=== PATIENT | female | born 1950 | race Caucasian/White ===

== ENCOUNTER → 2016-06-05 | Outpatient (CLI) | payer MEDICARE ==
[~2016-06-05] MED LIST: AMLO10TA2 PO; ATOR1TAB21 PO; AZEL0.055; CLON0.5T PO; DRIS50002 PO; FLON0.054; KLON0.5T PO; LEVO75TA4 PO; LEXA1TAB2 PO; PEPT525S PO; POLYOPD OU; REST0.05 OU; TUMS500C PO; VITA500019 PO
--- NOTE | 2016-06-05 11:55 | REPMRS ---
Patient History The patient states she had a clinical breast exam in 06/03 No known family history of cancer. 2 stereotatic breast biopsies. Digital Woman Screen Mammo: June 05, 2016 - Exam #: [id number] Bilateral CC and MLO view(s) were taken. Technologist: Rosario Huddleston, Technologist Prior study comparison: June 15, 2015, digital woman screen mammo performed at [facility]. May 23, 2014, digital woman screen mammo performed at [facility]. April 12, 2013, digital woman screen mammo performed at [facility]. FINDINGS: There are scattered fibroglandular densities. There is a moderate amount of residual fibroglandular tissue which is fairly symmetric. There is no interval development of dominant mass, architectural distortion, or clustered microcalcification typical of malignancy. There has been no change in the appearance of the mammogram from the prior studies. ASSESSMENT: BI-RADS/ACR category 1 mammogram. Negative. Recommendation Routine screening mammogram of both breasts in 1 year (for women over age 40). This mammogram was interpreted with the aid of an FDA-approved computer-aided dectection system. Electronically Signed By: Ronny Hicks MD 06/05/16 [id number]
== END ==
LOC: M WHC 10:40
PROVIDERS: ATTEND Nurse Practitioner Women's Health
DX: Z12.31 Encounter for screening mammogram for malignant neoplasm of breast (principal); Z12.4 Encounter for screening for malignant neoplasm of cervix
CPT/HCPCS: G0101; G0202

== ENCOUNTER 2016-07-25 18:44 | Emergency (ER) | payer MEDICARE ==
[~2016-07-25] VITALS: Ht 165.1 cm; Wt 64.4 kg
[2016-07-26 00:23] VITALS: BP 135/77
== END 2016-07-26 00:43 | disposition home or self-care (01) ==
LOC: M ED 20:22
DX: I10 Essential (primary) hypertension (principal); F03.90 Unspecified dementia, unspecified severity, without behavioral disturbance, psychotic disturbance, mood disturbance, and anxiety; Z79.899 Other long term (current) drug therapy

== ENCOUNTER → 2016-07-29 | Outpatient (REF) | payer MEDICARE ==
[2016-07-29 17:12] LABS: ALBUMIN 4.2 GM/DL (3.2-5.2); ALBUMIN/GLOBULIN RATIO 1.31 (1.00-1.93); BILIRUBIN,TOTAL 0.4 MG/DL (0.2-1.0); CALCIUM LEVEL 9.4 MG/DL (8.8-10.2); CREATININE FOR GFR 1.36 MG/DL (0.55-1.02); FREE T4 1.08 NG/DL (0.76-1.46); GLOMERULAR FILTRATION RATE 41.5 (>45); POTASSIUM SERUM 4.1 MEQ/L (3.5-5.1); TOTAL PROTEIN 7.4 GM/DL (6.4-8.2)
== END ==
LOC: M SFHCPLAZ 11:49
PROVIDERS: ATTEND Nurse Practitioner Family
DX: E03.9 Hypothyroidism, unspecified (principal)
CPT/HCPCS: 36415; 80053; 84439; 84443; G0463

== ENCOUNTER → 2016-10-21 | Outpatient (REF) | payer MEDICARE ==
[2016-10-21 19:24] LABS: ALBUMIN 3.9 GM/DL (3.2-5.2); ALBUMIN/GLOBULIN RATIO 1.15 (1.00-1.93); BILIRUBIN,TOTAL 0.4 MG/DL (0.2-1.0); CALCIUM LEVEL 9.6 MG/DL (8.8-10.2); CREATININE FOR GFR 1.32 MG/DL (0.55-1.02); FREE T4 1.08 NG/DL (0.76-1.46); TOTAL PROTEIN 7.3 GM/DL (6.4-8.2)
== END ==
LOC: M LABDRAW1 17:18
PROVIDERS: ATTEND Nurse Practitioner Family
DX: I10 Essential (primary) hypertension (principal); E03.9 Hypothyroidism, unspecified

== ENCOUNTER → 2016-10-23 | Outpatient (REF) | payer MEDICARE | LOC: M SFHCPLAZ 13:07 | PROVIDERS: ATTEND Nurse Practitioner Family | DX: R30.0 Dysuria (principal) | CPT/HCPCS: 81002; 87088; 87186; 90670; G0009; G0463 ==

== ENCOUNTER → 2017-02-09 | Outpatient (REF) | payer MEDICARE ==
[2017-02-09 13:38] LABS: ALBUMIN 4.2 GM/DL (3.2-5.2); ALBUMIN/GLOBULIN RATIO 1.35 (1.00-1.93); BILIRUBIN,TOTAL 0.4 MG/DL (0.2-1.0); CALCIUM LEVEL 9.9 MG/DL (8.8-10.2); CREATININE FOR GFR 1.27 MG/DL (0.55-1.02); FREE T4 0.95 NG/DL (0.76-1.46); GLOMERULAR FILTRATION RATE 44.8 (>45); POTASSIUM SERUM 4.8 MEQ/L (3.5-5.1); TOTAL PROTEIN 7.3 GM/DL (6.4-8.2)
== END ==
LOC: M SFHCPLAZ 09:15
PROVIDERS: ATTEND Nurse Practitioner Family
DX: I10 Essential (primary) hypertension (principal); E03.9 Hypothyroidism, unspecified; E78.2 Mixed hyperlipidemia; N18.3 Chronic kidney disease, stage 3 (moderate)

== ENCOUNTER → 2017-05-29 | Outpatient (CLI) | payer MEDICARE | LOC: M WHC 08:07 | DX: K43.9 Ventral hernia without obstruction or gangrene (principal) | CPT/HCPCS: 76705 ==

== ENCOUNTER → 2017-06-30 | Outpatient (REF) | payer MEDICARE ==
[2017-06-30 18:04] LABS: HEMATOCRIT 44.6 % (36.0-47.0); HEMOGLOBIN 14.5 g/dl (12.0-16.0); MEAN CORPUSCULAR HEMOGLOBIN 28.8 pg (27.0-33.0); MEAN CORPUSCULAR HGB CONC 32.5 g/dl (32.0-36.5); MEAN CORPUSCULAR VOLUME 88.7 fl (80.0-96.0); PLATELET COUNT, AUTOMATED 263 10^3/uL (150-450); RED BLOOD COUNT 5.03 10^6/uL (4.00-5.40); RED CELL DISTRIBUTION WIDTH 13.3 % (11.5-14.5)
[2017-06-30 18:10] LABS: PROTHROMBIN TIME 13.3 SECONDS (12.4-14.5)
[2017-06-30 19:27] LABS: ANION GAP 9 MEQ/L (8-16); BLOOD UREA NITROGEN 23 MG/DL (7-18); CALCIUM LEVEL 9.3 MG/DL (8.8-10.2); CARBON DIOXIDE LEVEL 30 MEQ/L (21-32); CHLORIDE LEVEL 104 MEQ/L (98-107); CREATININE FOR GFR 1.41 MG/DL (0.55-1.30); GLOMERULAR FILTRATION RATE 39.7 (>45); GLUCOSE, FASTING 81 MG/DL (70-100); POTASSIUM SERUM 4.4 MEQ/L (3.5-5.1); SODIUM LEVEL 143 MEQ/L (136-145)
== END ==
LOC: M SFHCPLAZ 14:32
DX: Z01.818 Encounter for other preprocedural examination (principal); K43.9 Ventral hernia without obstruction or gangrene; I12.9 Hypertensive chronic kidney disease with stage 1 through stage 4 chronic kidney disease, or unspecified chronic kidney disease; N18.3 Chronic kidney disease, stage 3 (moderate)
CPT/HCPCS: 80048

== ENCOUNTER 2017-07-06 08:06 | Day surgery (SDC) | payer MEDICARE ==
[~2017-07-06 08:06] MED LIST changes: -AMLO10TA2 PO; -ATOR1TAB21 PO; -AZEL0.055; -CLON0.5T PO; -DRIS50002 PO; -FLON0.054; +KETOROLAC 60 MG/2 ML VIAL (J1885) As Ordered; -KLON0.5T PO; -LEVO75TA4 PO; -LEXA1TAB2 PO; +LIDOCAINE 2% INJ 100 MG/5 ML SDV (FOR ANES.) As Ordered; +ONDANSETRON 4MG/2ML VIAL (J2405) As Ordered; -PEPT525S PO; -POLYOPD OU; +PROPOFOL 200 MG/20 ML VIAL As Ordered; -REST0.05 OU; +ROCURONIUM BROMIDE 50 MG/5 ML VIAL As Ordered; -TUMS500C PO; -VITA500019 PO; +dexameTHASONE 4 MG/ML 1ML VIAL (J1100) As Ordered
[2017-07-06] MEDS ORDERED: HYDROmorphone HCL 1 MG/ML SYRINGE (J1170) IV (08:30)
[2017-07-06] MEDS: LR 1,000 ML IV (08:45)
[2017-07-06] MEDS ORDERED: MIDAZOLAM INJ 2 MG/2 ML VIAL (J2250) As Ordered (08:51)
[2017-07-06] MEDS ORDERED: fentaNYL 100 MCG/2 ML INJECTION (J3010) As Ordered ×2 (08:51→10:50)
[2017-07-06] MEDS ORDERED: hydrALAZINE INJ 20 MG/ML VIAL As Ordered ×2 (09:37)
[2017-07-06] MEDS: LIDOCAINE W/EPINEPHRINE 1% 20ML VIAL As Ordered (09:45)
[2017-07-06] MEDS ORDERED: GLYCOPYRROLATE INJ 0.2 MG/ML 2 ML VIAL As Ordered ×2 (09:45)
[2017-07-06] MEDS ORDERED: NEOSTIGMINE 10 MG/10 ML VIAL (J2710) As Ordered (09:45)
[2017-07-06] MEDS ORDERED: PERCOCET 5MG/325MG TAB As Ordered (10:30)
[2017-07-06] MEDS: PERCOCET 5MG/325MG TAB PO (10:37)
[2017-07-06] MEDS: fentaNYL 100 MCG/2 ML INJECTION (J3010) IV ×2 (10:56→11:06)
[2017-07-06] MEDS ORDERED: ONDANSETRON 4MG/2ML VIAL (J2405) IV (11:15)
[2017-07-06] MEDS ORDERED: LR 1,000 ML IV (11:15)
[2017-07-06] MEDS ORDERED: KETOROLAC 30 MG/ML VIAL (J1885) As Ordered (16:23)
[2017-07-06] MEDS: KETOROLAC 30 MG/ML VIAL (J1885) IV (16:35)
[2017-07-06] MEDS: NORCO, ANEXSIA 5/325MG TABLET (HYDROcodone/ACETAMINOPHEN) PO (16:50)
== END 2017-07-06 18:25 | disposition home or self-care (01) ==
LOC: M SDC 08:06
DX: K43.6 Other and unspecified ventral hernia with obstruction, without gangrene (principal); I10 Essential (primary) hypertension; E78.00 Pure hypercholesterolemia, unspecified; F32.9 Major depressive disorder, single episode, unspecified; F41.9 Anxiety disorder, unspecified; E03.9 Hypothyroidism, unspecified; K21.9 Gastro-esophageal reflux disease without esophagitis; M85.80 Other specified disorders of bone density and structure, unspecified site; G30.9 Alzheimer's disease, unspecified; R51 Headache; R06.83 Snoring; Z79.899 Other long term (current) drug therapy; Z87.891 Personal history of nicotine dependence
CPT/HCPCS: 49653

== ENCOUNTER → 2017-08-17 | Outpatient (REF) | payer MEDICARE ==
[2017-08-17 12:19] LABS: TOTAL 25(OH) VITAMIN D 44.2 NG/ML (30.0-100.0)
[2017-08-17 12:27] LABS: ALBUMIN 4.1 GM/DL (3.2-5.2); ALBUMIN/GLOBULIN RATIO 1.32 (1.00-1.93); ALKALINE PHOSPHATASE 103 U/L (45-117); ALT/SGPT 22 U/L (12-78); ANION GAP 8 MEQ/L (8-16); AST/SGOT 18 U/L (7-37); BILIRUBIN,TOTAL 0.5 MG/DL (0.2-1.0); BLOOD UREA NITROGEN 29 MG/DL (7-18); CALCIUM LEVEL 9.8 MG/DL (8.8-10.2); CARBON DIOXIDE LEVEL 28 MEQ/L (21-32); CHLORIDE LEVEL 106 MEQ/L (98-107); CREATININE FOR GFR 1.28 MG/DL (0.55-1.30); FREE T4 0.91 NG/DL (0.76-1.46); GLOMERULAR FILTRATION RATE 44.4 (>45); GLUCOSE, FASTING 105 MG/DL (70-100); SODIUM LEVEL 142 MEQ/L (136-145); TOTAL PROTEIN 7.2 GM/DL (6.4-8.2)
== END ==
LOC: M SFHCPLAZ 10:16
DX: I10 Essential (primary) hypertension (principal); E03.9 Hypothyroidism, unspecified; E55.9 Vitamin D deficiency, unspecified
CPT/HCPCS: 84443

== ENCOUNTER → 2017-09-29 | Outpatient (CLI) | payer MEDICARE | LOC: M WHC 13:16 | DX: Z12.31 Encounter for screening mammogram for malignant neoplasm of breast (principal); Z98.890 Other specified postprocedural states | CPT/HCPCS: 77067 ==

== ENCOUNTER → 2017-10-05 | Outpatient (REF) | payer MEDICARE ==
[2017-10-05 12:00] LABS: VITAMIN B12 LEVEL 757 PG/ML
[2017-10-05 12:01] LABS: FOLATE > 24.0 NG/ML
[2017-10-05 12:39] LABS: ALBUMIN 3.9 GM/DL (3.2-5.2); ALKALINE PHOSPHATASE 102 U/L (45-117); ALT/SGPT 34 U/L (12-78); ANION GAP 8 MEQ/L (8-16); AST/SGOT 23 U/L (7-37); BILIRUBIN,TOTAL 0.3 MG/DL (0.2-1.0); BLOOD UREA NITROGEN 26 MG/DL (7-18); CALCIUM LEVEL 9.2 MG/DL (8.8-10.2); CARBON DIOXIDE LEVEL 28 MEQ/L (21-32); CHLORIDE LEVEL 108 MEQ/L (98-107); CHOLESTEROL LEVEL 179 MG/DL (<200); CHOLESTEROL RISK RATIO 4.162 (<5); CREATININE FOR GFR 1.23 MG/DL (0.55-1.30); FREE T4 0.96 NG/DL (0.76-1.46); GLOMERULAR FILTRATION RATE 46.5 (>45); GLUCOSE, FASTING 85 MG/DL (70-100); HDL CHOLESTEROL 43 MG/DL (>40); LDL CHOLESTEROL 96.4 MG/DL (<100); NON-HDL-C 136 MG/DL; POTASSIUM SERUM 4.5 MEQ/L (3.5-5.1); SODIUM LEVEL 144 MEQ/L (136-145); TOTAL PROTEIN 6.9 GM/DL (6.4-8.2); TRIGLYCERIDES LEVEL 198 MG/DL (<150)
[2017-10-05 13:07] LABS: TOTAL 25(OH) VITAMIN D 26.7 NG/ML (30.0-100.0)
== END ==
LOC: M SFHCPLAZ 09:38
DX: E03.9 Hypothyroidism, unspecified (principal); E78.2 Mixed hyperlipidemia; R41.89 Other symptoms and signs involving cognitive functions and awareness; E55.9 Vitamin D deficiency, unspecified; F02.80 Dementia in other diseases classified elsewhere, unspecified severity, without behavioral disturbance, psychotic disturbance, mood disturbance, and anxiety
CPT/HCPCS: 82746

== ENCOUNTER → 2017-10-23 | Outpatient (REF) | payer MEDICARE ==
[2017-10-23 23:07] LABS: AMORPHOUS SEDIMENT SMALL (NEGATIVE); APPEARANCE, URINE TURBID (CLEAR); BACTERIA, URINE AUTO 3+ (NEGATIVE); BILIRUBIN, URINE AUTO NEGATIVE (NEGATIVE); BLOOD, URINE BLOOD NEGATIVE (NEGATIVE); COLOR, URINE YELLOW (YELLOW); GLUCOSE, URINE (UA) AUTO NEGATIVE (NEGATIVE); KETONE, URINE AUTO NEGATIVE (NEGATIVE); LEUKOCYTE ESTERASE, URINE AUTO 3+ (NEGATIVE); MUCUS, URINE SMALL (NEGATIVE); NITRITE, URINE AUTO POSITIVE (NEGATIVE); PROTEIN, URINE AUTO NEGATIVE (NEGATIVE); RBC, URINE AUTO 5 /HPF (0-3); SPECIFIC GRAVITY URINE AUTO 1.018 (1.002-1.035); SQUAMOUS EPITHELIAL CELL UR AU 4 /HPF (0-6); UROBILINOGEN, URINE AUTO 0.2 mg/dL (0.0-2.0); WBC, URINE AUTO TNTC /HPF (0-3)
== END ==
LOC: M SFHCPLAZ 09:40
DX: R35.0 Frequency of micturition (principal)
CPT/HCPCS: 81001

== ENCOUNTER → 2018-01-13 | Outpatient (REF) | payer MEDICARE ==
[2018-01-13 14:50] LABS: ANION GAP 10 MEQ/L (8-16); BLOOD UREA NITROGEN 31 MG/DL (7-18); CALCIUM LEVEL 9.8 MG/DL (8.8-10.2); CARBON DIOXIDE LEVEL 24 MEQ/L (21-32); CHLORIDE LEVEL 110 MEQ/L (98-107); CREATININE FOR GFR 1.09 MG/DL (0.55-1.30); GLOMERULAR FILTRATION RATE 53.5 (>45); GLUCOSE, FASTING 105 MG/DL (70-100); POTASSIUM SERUM 3.9 MEQ/L (3.5-5.1); SODIUM LEVEL 144 MEQ/L (136-145)
== END ==
LOC: M LABDRAW1 13:01
DX: E03.9 Hypothyroidism, unspecified (principal); I10 Essential (primary) hypertension
CPT/HCPCS: 84443

== ENCOUNTER → 2018-02-19 | Outpatient (CLI) | payer MEDICARE ==
[2018-02-19 17:59] LABS: ALBUMIN 4.2 GM/DL (3.2-5.2); ANION GAP 9 MEQ/L (8-16); BLOOD UREA NITROGEN 33 MG/DL (7-18); CALCIUM LEVEL 9.9 MG/DL (8.8-10.2); CARBON DIOXIDE LEVEL 26 MEQ/L (21-32); CHLORIDE LEVEL 107 MEQ/L (98-107); CREATININE FOR GFR 1.28 MG/DL (0.55-1.30); GLOMERULAR FILTRATION RATE 44.3 (>45); GLUCOSE, FASTING 132 MG/DL (70-100); PHOSPHORUS LEVEL 3.3 MG/DL (2.5-4.9); POTASSIUM SERUM 4.1 MEQ/L (3.5-5.1); SODIUM LEVEL 142 MEQ/L (136-145)
[2018-02-19 18:13] LABS: ESTIMATED AVERAGE GLUCOSE 123 MG/DL (60-110); HEMOGLOBIN A1c 5.9 %
[2018-02-19 18:31] LABS: BASO # 0.1 10^3/uL (0.0-0.2); BASO % 0.9 % (0.0-1.0); EOS # 0.3 10^3/uL (0.0-0.50); EOS % 4.9 % (0.0-3.0); HEMATOCRIT 44.2 % (36.0-47.0); HEMOGLOBIN 14.5 g/dl (12.0-15.5); IMMATURE GRANULOCYTE % 0.3 % (0-3.0); LYMPH # 1.6 10^3/uL (1.5-4.5); LYMPH % 24.5 % (24.0-44.0); MEAN CORPUSCULAR HEMOGLOBIN 28.9 pg (27.0-33.0); MEAN CORPUSCULAR HGB CONC 32.8 g/dl (32.0-36.5); MEAN CORPUSCULAR VOLUME 88.2 fl (80.0-96.0); MONO # 0.6 10^3/uL (0.0-0.8); MONO % 9.7 % (0.0-5.0); NEUTROPHILS # 3.8 10^3/uL (1.8-7.7); NEUTROPHILS % 59.7 % (36.0-66.0); PLATELET COUNT, AUTOMATED 311 10^3/uL (150-450); RED BLOOD COUNT 5.01 10^6/uL (4.00-5.40); RED CELL DISTRIBUTION WIDTH 13.2 % (11.5-14.5); WHITE BLOOD COUNT 6.4 10^3/uL (4.0-10.0)
== END ==
LOC: M LAB 16:30
DX: N39.0 Urinary tract infection, site not specified (principal); R41.0 Disorientation, unspecified; Z79.890 Hormone replacement therapy; Z79.899 Other long term (current) drug therapy
CPT/HCPCS: 84443

== ENCOUNTER → 2018-02-19 | Outpatient (REF) | payer MEDICARE | LOC: M SFHCPLAZ 15:49 | DX: N39.0 Urinary tract infection, site not specified (principal) | CPT/HCPCS: 87086 ==

== ENCOUNTER → 2018-03-04 | Outpatient (REF) | payer MEDICARE | LOC: M LAB REF 18:55 | DX: N39.0 Urinary tract infection, site not specified (principal) | CPT/HCPCS: 87088 ==

== ENCOUNTER 2018-03-22 14:20 | Inpatient (IN) | payer MEDICARE ==
[2018-03-22 15:50] LABS: BASO % 0.2 % (0.0-1.0); HEMATOCRIT 44.3 % (36.0-47.0); HEMOGLOBIN 15.1 g/dl (12.0-15.5); IMMATURE GRANULOCYTE % 0.5 % (0-3.0); LYMPH # 1.1 10^3/uL (1.5-4.5); LYMPH % 6.4 % (24.0-44.0); MEAN CORPUSCULAR HEMOGLOBIN 28.8 pg (27.0-33.0); MEAN CORPUSCULAR HGB CONC 34.1 g/dl (32.0-36.5); MEAN CORPUSCULAR VOLUME 84.4 fl (80.0-96.0); MONO # 1.2 10^3/uL (0.0-0.8); MONO % 7.5 % (0.0-5.0); NEUTROPHILS # 14.1 10^3/uL (1.8-7.7); NEUTROPHILS % 85.4 % (36.0-66.0); PLATELET COUNT, AUTOMATED 379 10^3/uL (150-450); RED BLOOD COUNT 5.25 10^6/uL (4.00-5.40); RED CELL DISTRIBUTION WIDTH 13.1 % (11.5-14.5); WHITE BLOOD COUNT 16.5 10^3/uL (4.0-10.0)
[2018-03-22 15:59] LABS: KETONE, URINE AUTO RFX NEGATIVE (NEGATIVE); LEUKOCYTE ESTERASE UR AUTO RFX 3+ (NEGATIVE); NITRITE, URINE AUTO RFX NEGATIVE (NEGATIVE); RBC, URINE AUTO RFX 13 /HPF (0-3); SQUAM EPITHELIAL CELL UR AURFX 0 /HPF (0-6); WBC, URINE AUTO RFX TNTC /HPF (0-3)
[2018-03-22 16:00] LABS: LACTIC ACID SEPSIS PROTOCOL 1.4 MMOL/L (0.4-2.0)
[2018-03-22] MEDS: ACETAMINOPHEN 650 MG SUPP PR ×2 (16:00→18:48)
[2018-03-22] MEDS: NS 1,000 ML IV ×2 (16:01→20:55)
[2018-03-22] MEDS: ONDANSETRON 4MG/2ML VIAL (J2405) IV (16:01)
[2018-03-22] MEDS: MORPHINE 2 MG/ML 1ML SYRINGE (J2270) IV (16:01)
[2018-03-22 16:16] LABS: ALBUMIN 3.5 GM/DL (3.2-5.2); ALKALINE PHOSPHATASE 95 U/L (45-117); ALT/SGPT 26 U/L (12-78); ANION GAP 12 MEQ/L (8-16); BILIRUBIN,DIRECT 0.1 MG/DL (0.0-0.2); BILIRUBIN,TOTAL 0.6 MG/DL (0.2-1.0); BLOOD UREA NITROGEN 18 MG/DL (7-18); CALCIUM LEVEL 9.4 MG/DL (8.8-10.2); CARBON DIOXIDE LEVEL 25 MEQ/L (21-32); CHLORIDE LEVEL 102 MEQ/L (98-107); GLOMERULAR FILTRATION RATE 43.5 (>45); GLUCOSE, FASTING 139 MG/DL (70-100); LIPASE 59 U/L (73-393); POTASSIUM SERUM 3.2 MEQ/L (3.5-5.1); SODIUM LEVEL 139 MEQ/L (136-145)
[2018-03-22 16:17] LABS: AST/SGOT 17 U/L (7-37)
[2018-03-22] MEDS ORDERED: ISOVUE-370 76% 100ML VIAL (Q9967) As Ordered (16:32)
[2018-03-22] MEDS: PIPERACILLIN/TAZOBACTAM SOD 4.5 GM in D5W MINI-BAG PLUS 50 ML IV (17:30)
[2018-03-22] MEDS: KCL 10MEQ/100ML SWI (KRUN) 10 MEQ in APPROPRIATE DILUENT 1 EA IV ×2 (20:55→22:50)
[2018-03-22] MEDS: TAMSULOSIN 0.4 MG CAP PO (22:50)
[2018-03-22] MEDS: HEPARIN SOD (PORCINE) 5000 UNITS/ML VIAL SC (22:51)
[2018-03-23] MEDS: KCL 10MEQ/100ML SWI (KRUN) 10 MEQ in APPROPRIATE DILUENT 1 EA IV ×2 (00:50→04:05)
[2018-03-23] MEDS ORDERED: KCL 10MEQ IN STERILE WATER 100ML As Ordered (04:04)
[2018-03-23] MEDS: HEPARIN SOD (PORCINE) 5000 UNITS/ML VIAL SC ×3 (06:25→22:09)
[2018-03-23 08:05] LABS: HEMATOCRIT 40.3 % (36.0-47.0); HEMOGLOBIN 13.2 g/dl (12.0-15.5); MEAN CORPUSCULAR HEMOGLOBIN 28.4 pg (27.0-33.0); MEAN CORPUSCULAR HGB CONC 32.8 g/dl (32.0-36.5); MEAN CORPUSCULAR VOLUME 86.7 fl (80.0-96.0); PLATELET COUNT, AUTOMATED 298 10^3/uL (150-450); RED BLOOD COUNT 4.65 10^6/uL (4.00-5.40); RED CELL DISTRIBUTION WIDTH 13.6 % (11.5-14.5); WHITE BLOOD COUNT 12.4 10^3/uL (4.0-10.0)
[2018-03-23 08:30] LABS: ANION GAP 6 MEQ/L (8-16); BLOOD UREA NITROGEN 22 MG/DL (7-18); CALCIUM LEVEL 8.7 MG/DL (8.8-10.2); CARBON DIOXIDE LEVEL 27 MEQ/L (21-32); CHLORIDE LEVEL 110 MEQ/L (98-107); CREATININE FOR GFR 1.23 MG/DL (0.55-1.30); GLOMERULAR FILTRATION RATE 46.4 (>45); GLUCOSE, FASTING 102 MG/DL (70-100); POTASSIUM SERUM 3.6 MEQ/L (3.5-5.1); SODIUM LEVEL 143 MEQ/L (136-145)
[2018-03-23] MEDS: cefTRIAXone SOD 1 GM in D5W MINI-BAG PLUS 50 ML IV (09:50)
[2018-03-23] MEDS: NS 1,000 ML IV ×2 (12:07→13:41)
[2018-03-23] MEDS: MORPHINE 4 MG/ML 1ML VIAL/SYRINGE (J2270) IV (14:09)
[2018-03-23] MEDS: TAMSULOSIN 0.4 MG CAP PO (19:32)
[2018-03-23] MEDS: lamoTRIgine 100MG TAB PO (21:55)
[2018-03-24] MEDS: LORazepam 2 MG/ML VIAL (J2060) IV ×5 (01:52→22:10)
[2018-03-24] MEDS: HEPARIN SOD (PORCINE) 5000 UNITS/ML VIAL SC ×3 (06:00→20:07)
[2018-03-24] MEDS: LEVOTHYROXINE 88MCG TABLET (0.088 MG) PO (06:00)
[2018-03-24 09:37] LABS: HEMATOCRIT 35.4 % (36.0-47.0); HEMOGLOBIN 11.6 g/dl (12.0-15.5); MEAN CORPUSCULAR HEMOGLOBIN 29.1 pg (27.0-33.0); MEAN CORPUSCULAR HGB CONC 32.8 g/dl (32.0-36.5); MEAN CORPUSCULAR VOLUME 88.9 fl (80.0-96.0); PLATELET COUNT, AUTOMATED 267 10^3/uL (150-450); RED BLOOD COUNT 3.98 10^6/uL (4.00-5.40); RED CELL DISTRIBUTION WIDTH 13.3 % (11.5-14.5); WHITE BLOOD COUNT 8.3 10^3/uL (4.0-10.0)
[2018-03-24] MEDS: lamoTRIgine 100MG TAB PO ×2 (09:38→20:06)
[2018-03-24] MEDS: NS 1,000 ML IV ×3 (09:39→22:52)
[2018-03-24] MEDS: cefTRIAXone SOD 1 GM in D5W MINI-BAG PLUS 50 ML IV (09:39)
[2018-03-24 09:58] LABS: ANION GAP 7 MEQ/L (8-16); BLOOD UREA NITROGEN 14 MG/DL (7-18); CALCIUM LEVEL 9.1 MG/DL (8.8-10.2); CARBON DIOXIDE LEVEL 26 MEQ/L (21-32); CHLORIDE LEVEL 111 MEQ/L (98-107); CREATININE FOR GFR 0.94 MG/DL (0.55-1.30); GLOMERULAR FILTRATION RATE > 60.0 (>45); GLUCOSE, FASTING 108 MG/DL (70-100); POTASSIUM SERUM 3.6 MEQ/L (3.5-5.1); SODIUM LEVEL 144 MEQ/L (136-145)
[2018-03-24] MEDS: LORazepam 1 MG TAB PO (10:40)
[2018-03-24] MEDS ORDERED: HALOPERIDOL 5 MG/ML VIAL (J1630) As Ordered (14:58)
[2018-03-24] MEDS: HALOPERIDOL 5 MG/ML VIAL (J1630) IV (15:00)
[2018-03-24] MEDS: PHENAZOPYRIDINE 100 MG TAB PO (20:05)
[2018-03-24] MEDS: VERAPAMIL 120 MG SR TAB PO (20:06)
[2018-03-24] MEDS: TAMSULOSIN 0.4 MG CAP PO (20:06)
[2018-03-24] MEDS: ROSUVASTATIN 10 MG TAB (CRESTOR) PO (20:06)
[2018-03-24] MEDS: TEMAZEPAM 7.5 MG CAP PO (20:07)
[2018-03-25] MEDS: HALOPERIDOL 5 MG/ML VIAL (J1630) IV ×2 (00:56→10:32)
[2018-03-25] MEDS: LORazepam 2 MG/ML VIAL (J2060) IV ×3 (04:45→14:14)
[2018-03-25] MEDS: LEVOTHYROXINE 88MCG TABLET (0.088 MG) PO (06:00)
[2018-03-25] MEDS: cefTRIAXone SOD 1 GM in D5W MINI-BAG PLUS 50 ML IV (08:48)
[2018-03-25] MEDS: NS 1,000 ML IV ×3 (08:48→20:53)
[2018-03-25] MEDS: HEPARIN SOD (PORCINE) 5000 UNITS/ML VIAL SC ×3 (08:49→20:53)
[2018-03-25] MEDS: PHENAZOPYRIDINE 100 MG TAB PO ×2 (08:49→23:26)
[2018-03-25] MEDS: lamoTRIgine 100MG TAB PO (08:49)
[2018-03-25] MEDS: QUEtiapine FUMARATE 50 MG TAB PO (20:51)
[2018-03-25] MEDS: ROSUVASTATIN 10 MG TAB (CRESTOR) PO (20:52)
[2018-03-25] MEDS: VERAPAMIL 120 MG SR TAB PO (20:52)
[2018-03-25] MEDS: TAMSULOSIN 0.4 MG CAP PO (20:52)
[2018-03-25] MEDS: TEMAZEPAM 7.5 MG CAP PO (20:52)
[2018-03-25] MEDS: ACETAMINOPHEN TAB 650MG DOSE (2X325MG) PO (20:54)
[2018-03-25] MEDS: OLANZapine ORAL DISINTEGRATING TAB 5MG PO (23:26)
[2018-03-26] MEDS: LEVOTHYROXINE 88MCG TABLET (0.088 MG) PO (06:53)
[2018-03-26] MEDS: OLANZapine ORAL DISINTEGRATING TAB 5MG PO ×2 (06:53→18:57)
[2018-03-26] MEDS: HEPARIN SOD (PORCINE) 5000 UNITS/ML VIAL SC ×3 (06:54→20:48)
[2018-03-26] MEDS: cefTRIAXone SOD 1 GM in D5W MINI-BAG PLUS 50 ML IV (09:06)
[2018-03-26] MEDS: QUEtiapine FUMARATE 25 MG TAB PO ×2 (09:06→20:47)
[2018-03-26] MEDS: PHENAZOPYRIDINE 100 MG TAB PO ×2 (09:06→20:46)
[2018-03-26] MEDS ORDERED: HEPARIN SOD (PORCINE) 5000 UNITS/ML VIAL As Ordered (20:27)
[2018-03-26] MEDS ORDERED: PILL CRUSHER/CUTTER 1 EACH XX (20:45)
[2018-03-26] MEDS: VERAPAMIL 120 MG SR TAB PO (20:46)
[2018-03-26] MEDS: ROSUVASTATIN 10 MG TAB (CRESTOR) PO (20:46)
[2018-03-26] MEDS: TAMSULOSIN 0.4 MG CAP PO (20:47)
[2018-03-26] MEDS: ACETAMINOPHEN TAB 650MG DOSE (2X325MG) PO (20:47)
[2018-03-26] MEDS: TEMAZEPAM 7.5 MG CAP PO (20:48)
[2018-03-27] MEDS: LEVOTHYROXINE 88MCG TABLET (0.088 MG) PO (06:00)
[2018-03-27] MEDS: HEPARIN SOD (PORCINE) 5000 UNITS/ML VIAL SC ×3 (06:00→19:54)
[2018-03-27 07:33] LABS: HEMATOCRIT 38.7 % (36.0-47.0); HEMOGLOBIN 12.9 g/dl (12.0-15.5); MEAN CORPUSCULAR HEMOGLOBIN 28.7 pg (27.0-33.0); MEAN CORPUSCULAR HGB CONC 33.3 g/dl (32.0-36.5); PLATELET COUNT, AUTOMATED 402 10^3/uL (150-450); RED CELL DISTRIBUTION WIDTH 13.1 % (11.5-14.5); WHITE BLOOD COUNT 6.1 10^3/uL (4.0-10.0)
[2018-03-27 07:57] LABS: ANION GAP 9 MEQ/L (8-16); BLOOD UREA NITROGEN 8 MG/DL (7-18); CARBON DIOXIDE LEVEL 27 MEQ/L (21-32); CHLORIDE LEVEL 110 MEQ/L (98-107); CREATININE FOR GFR 0.95 MG/DL (0.55-1.30); GLOMERULAR FILTRATION RATE > 60.0 (>45); GLUCOSE, FASTING 106 MG/DL (70-100); POTASSIUM SERUM 3.1 MEQ/L (3.5-5.1); SODIUM LEVEL 146 MEQ/L (136-145)
[2018-03-27] MEDS: PHENAZOPYRIDINE 100 MG TAB PO ×2 (09:24→19:53)
[2018-03-27] MEDS: QUEtiapine FUMARATE 50 MG TAB PO (09:24)
[2018-03-27] MEDS: cefTRIAXone SOD 1 GM in D5W MINI-BAG PLUS 50 ML IV (09:25)
[2018-03-27] MEDS: POTASSIUM CHLORIDE 10 MEQ SR TABLET PO (14:17)
[2018-03-27] MEDS ORDERED: HEPARIN SOD (PORCINE) 5000 UNITS/ML VIAL As Ordered (19:46)
[2018-03-27] MEDS: TAMSULOSIN 0.4 MG CAP PO (19:53)
[2018-03-27] MEDS: VERAPAMIL 120 MG SR TAB PO (19:53)
[2018-03-27] MEDS: ROSUVASTATIN 10 MG TAB (CRESTOR) PO (19:53)
[2018-03-27] MEDS: ACETAMINOPHEN TAB 650MG DOSE (2X325MG) PO (19:54)
[2018-03-27] MEDS: QUEtiapine FUMARATE 25 MG TAB PO (19:54)
[2018-03-27] MEDS: TEMAZEPAM 7.5 MG CAP PO (19:54)
[2018-03-28] MEDS: LEVOTHYROXINE 88MCG TABLET (0.088 MG) PO (05:48)
[2018-03-28] MEDS: HEPARIN SOD (PORCINE) 5000 UNITS/ML VIAL SC ×3 (05:48→21:11)
[2018-03-28] MEDS: PHENAZOPYRIDINE 100 MG TAB PO ×2 (08:48→21:10)
[2018-03-28] MEDS: POTASSIUM CHLORIDE 10 MEQ SR TABLET PO (08:48)
[2018-03-28] MEDS: BACTRIM 160MG/800MG DS TAB PO ×2 (08:49→21:10)
[2018-03-28] MEDS: QUEtiapine FUMARATE 50 MG TAB PO (08:49)
[2018-03-28] MEDS: ACETAMINOPHEN TAB 650MG DOSE (2X325MG) PO ×2 (15:40→21:11)
[2018-03-28] MEDS: OLANZapine ORAL DISINTEGRATING TAB 5MG PO (17:24)
[2018-03-28] MEDS: ROSUVASTATIN 10 MG TAB (CRESTOR) PO (21:10)
[2018-03-28] MEDS: QUEtiapine FUMARATE 25 MG TAB PO (21:10)
[2018-03-28] MEDS: TEMAZEPAM 7.5 MG CAP PO (21:10)
[2018-03-28] MEDS: TAMSULOSIN 0.4 MG CAP PO (21:10)
[2018-03-28] MEDS: VERAPAMIL 120 MG SR TAB PO (21:11)
[2018-03-29] MEDS: LEVOTHYROXINE 88MCG TABLET (0.088 MG) PO (05:14)
[2018-03-29] MEDS: HEPARIN SOD (PORCINE) 5000 UNITS/ML VIAL SC ×3 (05:14→21:02)
[2018-03-29] MEDS: BACTRIM 160MG/800MG DS TAB PO ×2 (09:20→21:05)
[2018-03-29] MEDS: OLANZapine ORAL DISINTEGRATING TAB 5MG PO ×2 (09:20→21:04)
[2018-03-29] MEDS: ACETAMINOPHEN TAB 650MG DOSE (2X325MG) PO ×2 (09:20→21:03)
[2018-03-29] MEDS: QUEtiapine FUMARATE 50 MG TAB PO (09:20)
[2018-03-29] MEDS: PHENAZOPYRIDINE 100 MG TAB PO ×2 (09:21→21:03)
[2018-03-29 13:43] LABS: ANION GAP 9 MEQ/L (8-16); BLOOD UREA NITROGEN 15 MG/DL (7-18); CALCIUM LEVEL 9.7 MG/DL (8.8-10.2); CARBON DIOXIDE LEVEL 25 MEQ/L (21-32); CHLORIDE LEVEL 107 MEQ/L (98-107); CREATININE FOR GFR 1.18 MG/DL (0.55-1.30); GLOMERULAR FILTRATION RATE 48.6 (>45); GLUCOSE, FASTING 104 MG/DL (70-100); POTASSIUM SERUM 4.1 MEQ/L (3.5-5.1); SODIUM LEVEL 141 MEQ/L (136-145)
[2018-03-29] MEDS ORDERED: HEPARIN SOD (PORCINE) 5000 UNITS/ML VIAL As Ordered (20:56)
[2018-03-29] MEDS: MIRTAZAPINE 7.5MG PER 1/2 TABLET PO (21:02)
[2018-03-29] MEDS: QUEtiapine FUMARATE 25 MG TAB PO (21:03)
[2018-03-29] MEDS: TAMSULOSIN 0.4 MG CAP PO (21:04)
[2018-03-29] MEDS: ROSUVASTATIN 10 MG TAB (CRESTOR) PO (21:05)
[2018-03-29] MEDS: VERAPAMIL 120 MG SR TAB PO (21:05)
[2018-03-30] MEDS: LEVOTHYROXINE 88MCG TABLET (0.088 MG) PO (05:41)
[2018-03-30] MEDS: HEPARIN SOD (PORCINE) 5000 UNITS/ML VIAL SC ×3 (05:41→21:50)
[2018-03-30 08:23] LABS: HEMATOCRIT 39.7 % (36.0-47.0); MEAN CORPUSCULAR HEMOGLOBIN 28.8 pg (27.0-33.0); MEAN CORPUSCULAR HGB CONC 32.7 g/dl (32.0-36.5); MEAN CORPUSCULAR VOLUME 87.8 fl (80.0-96.0); PLATELET COUNT, AUTOMATED 447 10^3/uL (150-450); RED BLOOD COUNT 4.52 10^6/uL (4.00-5.40); RED CELL DISTRIBUTION WIDTH 13.7 % (11.5-14.5); WHITE BLOOD COUNT 5.3 10^3/uL (4.0-10.0)
[2018-03-30 08:43] LABS: ANION GAP 8 MEQ/L (8-16); BLOOD UREA NITROGEN 14 MG/DL (7-18); CALCIUM LEVEL 9.9 MG/DL (8.8-10.2); CARBON DIOXIDE LEVEL 25 MEQ/L (21-32); CHLORIDE LEVEL 106 MEQ/L (98-107); CREATININE FOR GFR 1.27 MG/DL (0.55-1.30); GLOMERULAR FILTRATION RATE 44.7 (>45); GLUCOSE, FASTING 123 MG/DL (70-100); POTASSIUM SERUM 3.9 MEQ/L (3.5-5.1); SODIUM LEVEL 139 MEQ/L (136-145)
[2018-03-30] MEDS: BACTRIM 160MG/800MG DS TAB PO ×2 (09:24→21:50)
[2018-03-30] MEDS: QUEtiapine FUMARATE 50 MG TAB PO (09:24)
[2018-03-30] MEDS: PHENAZOPYRIDINE 100 MG TAB PO ×2 (09:24→21:50)
[2018-03-30] MEDS: OLANZapine ORAL DISINTEGRATING TAB 5MG PO (17:55)
[2018-03-30] MEDS: ACETAMINOPHEN TAB 650MG DOSE (2X325MG) PO (17:55)
[2018-03-30] MEDS: TAMSULOSIN 0.4 MG CAP PO (21:49)
[2018-03-30] MEDS: QUEtiapine FUMARATE 25 MG TAB PO (21:50)
[2018-03-30] MEDS: MIRTAZAPINE 7.5MG PER 1/2 TABLET PO (21:50)
[2018-03-30] MEDS: ROSUVASTATIN 10 MG TAB (CRESTOR) PO (21:50)
[2018-03-30] MEDS: VERAPAMIL 120 MG SR TAB PO (21:50)
[2018-03-31] MEDS: LEVOTHYROXINE 88MCG TABLET (0.088 MG) PO (06:06)
[2018-03-31] MEDS: HEPARIN SOD (PORCINE) 5000 UNITS/ML VIAL SC ×3 (06:06→21:39)
[2018-03-31 06:40] LABS: HEMATOCRIT 41.2 % (36.0-47.0); HEMOGLOBIN 13.5 g/dl (12.0-15.5); MEAN CORPUSCULAR HEMOGLOBIN 28.3 pg (27.0-33.0); MEAN CORPUSCULAR HGB CONC 32.8 g/dl (32.0-36.5); MEAN CORPUSCULAR VOLUME 86.4 fl (80.0-96.0); PLATELET COUNT, AUTOMATED 462 10^3/uL (150-450); RED BLOOD COUNT 4.77 10^6/uL (4.00-5.40); RED CELL DISTRIBUTION WIDTH 13.9 % (11.5-14.5); WHITE BLOOD COUNT 7.7 10^3/uL (4.0-10.0)
[2018-03-31 07:09] LABS: ANION GAP 10 MEQ/L (8-16); BLOOD UREA NITROGEN 20 MG/DL (7-18); CALCIUM LEVEL 10.5 MG/DL (8.8-10.2); CARBON DIOXIDE LEVEL 24 MEQ/L (21-32); CHLORIDE LEVEL 104 MEQ/L (98-107); CREATININE FOR GFR 1.41 MG/DL (0.55-1.30); GLOMERULAR FILTRATION RATE 39.6 (>45); GLUCOSE, FASTING 104 MG/DL (70-100); POTASSIUM SERUM 4.2 MEQ/L (3.5-5.1); SODIUM LEVEL 138 MEQ/L (136-145)
[2018-03-31] MEDS: PHENAZOPYRIDINE 100 MG TAB PO ×2 (08:55→21:36)
[2018-03-31] MEDS: QUEtiapine FUMARATE 50 MG TAB PO (08:56)
[2018-03-31 09:42] LABS: KETONE, URINE AUTO RFX NEGATIVE (NEGATIVE); LEUKOCYTE ESTERASE UR AUTO RFX NEGATIVE (NEGATIVE); MUCUS, URINE RFX SMALL (NEGATIVE); NITRITE, URINE AUTO RFX POSITIVE (NEGATIVE); RBC, URINE AUTO RFX 2 /HPF (0-3); SPECIFIC GRAVITY UR AUTO RFX 1.011 (1.002-1.035); SQUAM EPITHELIAL CELL UR AURFX 0 /HPF (0-6); WBC, URINE AUTO RFX 1 /HPF (0-3)
[2018-03-31] MEDS: ACETAMINOPHEN TAB 650MG DOSE (2X325MG) PO (11:22)
[2018-03-31] MEDS: OLANZapine ORAL DISINTEGRATING TAB 5MG PO (17:28)
[2018-03-31] MEDS: MIRTAZAPINE 7.5MG PER 1/2 TABLET PO (21:36)
[2018-03-31] MEDS: ROSUVASTATIN 10 MG TAB (CRESTOR) PO (21:36)
[2018-03-31] MEDS: QUEtiapine FUMARATE 25 MG TAB PO (21:36)
[2018-03-31] MEDS: TAMSULOSIN 0.4 MG CAP PO (21:36)
[2018-03-31] MEDS: VERAPAMIL 120 MG SR TAB PO (21:38)
[2018-04-01] MEDS: ACETAMINOPHEN TAB 650MG DOSE (2X325MG) PO ×2 (03:28→22:48)
[2018-04-01] MEDS: OLANZapine ORAL DISINTEGRATING TAB 5MG PO ×3 (03:32→18:14)
[2018-04-01] MEDS: LEVOTHYROXINE 88MCG TABLET (0.088 MG) PO (05:47)
[2018-04-01] MEDS: HEPARIN SOD (PORCINE) 5000 UNITS/ML VIAL SC ×3 (05:48→22:48)
[2018-04-01 07:48] LABS: HEMATOCRIT 42.7 % (36.0-47.0); HEMOGLOBIN 14.1 g/dl (12.0-15.5); MEAN CORPUSCULAR HEMOGLOBIN 28.4 pg (27.0-33.0); MEAN CORPUSCULAR VOLUME 86.1 fl (80.0-96.0); PLATELET COUNT, AUTOMATED 453 10^3/uL (150-450); RED BLOOD COUNT 4.96 10^6/uL (4.00-5.40); RED CELL DISTRIBUTION WIDTH 14.1 % (11.5-14.5); WHITE BLOOD COUNT 6.9 10^3/uL (4.0-10.0)
[2018-04-01 08:15] LABS: ANION GAP 9 MEQ/L (8-16); BLOOD UREA NITROGEN 20 MG/DL (7-18); CALCIUM LEVEL 10.3 MG/DL (8.8-10.2); CARBON DIOXIDE LEVEL 25 MEQ/L (21-32); CHLORIDE LEVEL 104 MEQ/L (98-107); CREATININE FOR GFR 1.38 MG/DL (0.55-1.30); GLOMERULAR FILTRATION RATE 40.6 (>45); GLUCOSE, FASTING 112 MG/DL (70-100); SODIUM LEVEL 138 MEQ/L (136-145)
[2018-04-01] MEDS: QUEtiapine FUMARATE 50 MG TAB PO (08:44)
[2018-04-01] MEDS: PHENAZOPYRIDINE 100 MG TAB PO ×2 (08:44→22:48)
[2018-04-01] MEDS: QUEtiapine FUMARATE 25 MG TAB PO (22:48)
[2018-04-01] MEDS: TAMSULOSIN 0.4 MG CAP PO (22:48)
[2018-04-01] MEDS: MIRTAZAPINE 7.5MG PER 1/2 TABLET PO (22:49)
[2018-04-01] MEDS: ROSUVASTATIN 10 MG TAB (CRESTOR) PO (22:50)
[2018-04-01] MEDS: VERAPAMIL 120 MG SR TAB PO (22:50)
[2018-04-02] MEDS: OLANZapine ORAL DISINTEGRATING TAB 5MG PO (02:45)
[2018-04-02] MEDS: LEVOTHYROXINE 88MCG TABLET (0.088 MG) PO (07:08)
[2018-04-02] MEDS: HEPARIN SOD (PORCINE) 5000 UNITS/ML VIAL SC ×2 (07:08→14:00)
[2018-04-02 08:08] LABS: ANION GAP 8 MEQ/L (8-16); BLOOD UREA NITROGEN 24 MG/DL (7-18); CARBON DIOXIDE LEVEL 24 MEQ/L (21-32); CHLORIDE LEVEL 105 MEQ/L (98-107); CREATININE FOR GFR 1.28 MG/DL (0.55-1.30); GLOMERULAR FILTRATION RATE 44.3 (>45); GLUCOSE, FASTING 102 MG/DL (70-100); POTASSIUM SERUM 4.3 MEQ/L (3.5-5.1); SODIUM LEVEL 137 MEQ/L (136-145)
[2018-04-02] MEDS: PHENAZOPYRIDINE 100 MG TAB PO (10:41)
[2018-04-02] MEDS: QUEtiapine FUMARATE 50 MG TAB PO (10:41)
[2018-04-02 11:22] LABS: HEMATOCRIT 45.9 % (36.0-47.0); HEMOGLOBIN 14.6 g/dl (12.0-15.5); MEAN CORPUSCULAR HEMOGLOBIN 28.3 pg (27.0-33.0); MEAN CORPUSCULAR HGB CONC 31.8 g/dl (32.0-36.5); PLATELET COUNT, AUTOMATED 411 10^3/uL (150-450); RED BLOOD COUNT 5.16 10^6/uL (4.00-5.40); RED CELL DISTRIBUTION WIDTH 14.1 % (11.5-14.5); WHITE BLOOD COUNT 5.4 10^3/uL (4.0-10.0)
== END 2018-04-02 16:30 | disposition home health service (06) | DRG 872 ==
LOC: M MS5PR 03-25 17:08 → M MS4PR 03-24 23:30 → M ED 14:20 → M ED INP 17:41 → M PCU 21:32
DX: A41.9 Sepsis, unspecified organism (principal); N10 Acute pyelonephritis; E87.0 Hyperosmolality and hypernatremia; N17.9 Acute kidney failure, unspecified; I10 Essential (primary) hypertension; E03.9 Hypothyroidism, unspecified; E87.6 Hypokalemia; R31.0 Gross hematuria; E78.5 Hyperlipidemia, unspecified; D17.71 Benign lipomatous neoplasm of kidney; F01.50 Vascular dementia, unspecified severity, without behavioral disturbance, psychotic disturbance, mood disturbance, and anxiety; R33.9 Retention of urine, unspecified; Z79.899 Other long term (current) drug therapy

== ENCOUNTER 2018-04-06 17:18 | Emergency (ER) | payer MEDICARE ==
[2018-04-06 18:32] LABS: BASO # 0.1 10^3/uL (0.0-0.2); BASO % 1.1 % (0.0-1.0); EOS # 0.3 10^3/uL (0.0-0.50); EOS % 3.8 % (0.0-3.0); HEMATOCRIT 39.6 % (36.0-47.0); IMMATURE GRANULOCYTE % 0.5 % (0-3.0); LYMPH # 1.9 10^3/uL (1.5-4.5); LYMPH % 25.3 % (24.0-44.0); MEAN CORPUSCULAR HGB CONC 32.8 g/dl (32.0-36.5); MEAN CORPUSCULAR VOLUME 88.4 fl (80.0-96.0); MONO # 0.6 10^3/uL (0.0-0.8); MONO % 8.1 % (0.0-5.0); NEUTROPHILS # 4.5 10^3/uL (1.8-7.7); NEUTROPHILS % 61.2 % (36.0-66.0); PLATELET COUNT, AUTOMATED 356 10^3/uL (150-450); RED BLOOD COUNT 4.48 10^6/uL (4.00-5.40); RED CELL DISTRIBUTION WIDTH 13.9 % (11.5-14.5); WHITE BLOOD COUNT 7.3 10^3/uL (4.0-10.0)
[2018-04-06 18:48] LABS: APPEARANCE, URINE CLEAR (CLEAR); BACTERIA, URINE AUTO 2+ (NEGATIVE); BILIRUBIN, URINE AUTO NEGATIVE (NEGATIVE); BLOOD, URINE BLOOD NEGATIVE (NEGATIVE); COLOR, URINE AMBER (YELLOW); GLUCOSE, URINE (UA) AUTO NEGATIVE (NEGATIVE); KETONE, URINE AUTO NEGATIVE (NEGATIVE); LEUKOCYTE ESTERASE, URINE AUTO 2+ (NEGATIVE); MUCUS, URINE SMALL (NEGATIVE); NITRITE, URINE AUTO POSITIVE (NEGATIVE); PROTEIN, URINE AUTO NEGATIVE (NEGATIVE); RBC, URINE AUTO 3 /HPF (0-3); SPECIFIC GRAVITY URINE AUTO 1.008 (1.002-1.035); SQUAMOUS EPITHELIAL CELL UR AU 0 /HPF (0-6); WBC, URINE AUTO 109 /HPF (0-3)
[2018-04-06 19:11] LABS: ANION GAP 8 MEQ/L (8-16); BLOOD UREA NITROGEN 21 MG/DL (7-18); CALCIUM LEVEL 9.6 MG/DL (8.8-10.2); CARBON DIOXIDE LEVEL 28 MEQ/L (21-32); CHLORIDE LEVEL 104 MEQ/L (98-107); CREATININE FOR GFR 1.16 MG/DL (0.55-1.30); GLOMERULAR FILTRATION RATE 49.6 (>45); GLUCOSE, FASTING 119 MG/DL (70-100); SODIUM LEVEL 140 MEQ/L (136-145)
[2018-04-06] MEDS ORDERED: ISOVUE-370 76% 100ML VIAL (Q9967) As Ordered (20:17)
[2018-04-06 20:21] LABS: ALBUMIN 3.8 GM/DL (3.2-5.2); ALBUMIN/GLOBULIN RATIO 1.31 (1.00-1.93); ALKALINE PHOSPHATASE 84 U/L (45-117); ALT/SGPT 31 U/L (12-78); AST/SGOT 14 U/L (7-37); BILIRUBIN,DIRECT < 0.1 MG/DL (0.0-0.2); BILIRUBIN,TOTAL 0.4 MG/DL (0.2-1.0); LIPASE 122 U/L (73-393); TOTAL PROTEIN 6.7 GM/DL (6.4-8.2)
[2018-04-06] MEDS: GASTROGRAFIN SOLUTION 30ML PO ×2 (20:36→21:06)
[2018-04-07] MEDS: PIPERACILLIN/TAZOBACTAM SOD 3.375 GM in D5W MINI-BAG PLUS 50 ML IV (00:29)
== END 2018-04-07 02:02 | disposition home or self-care (01) ==
LOC: M ED 04-07 02:02
DX: N39.0 Urinary tract infection, site not specified (principal); K59.00 Constipation, unspecified; I10 Essential (primary) hypertension; Z87.440 Personal history of urinary (tract) infections; Z87.891 Personal history of nicotine dependence; Z79.899 Other long term (current) drug therapy
CPT/HCPCS: Q9963

== ENCOUNTER → 2018-04-29 | Outpatient (REF) | payer MEDICARE ==
[~2018-04-29] MED LIST changes: +ACET-683 PO; +AMLO10TA4 PO; +ARIP1TAB10; +ATIV1TAB7 PO; +ATOR1TAB21 PO; +AZEL0.055; +BUPR150T3; +CLON0.5T8 PO; +COLA100C5 PO; +DOCU100C16 PO; +DRIS50003 PO; +Docusate Sod/Senna PO; +FLOM0.4C39 PO; +FLON0.054; +GABA-1171 PO; +GABA-845 PO; -KETOROLAC 60 MG/2 ML VIAL (J1885) As Ordered; +KLON0.5T PO; +LAMO100T PO; +LEVO75TA4 PO; +LEVO88TA3 PO; +LEXA1TAB2 PO; -LIDOCAINE 2% INJ 100 MG/5 ML SDV (FOR ANES.) As Ordered; +MACR100C43 PO; +MIRA; +MIRA3350 PO; +MIRT15TA3 PO; +MULTCAP PO; +OLAN10TA2 PO; +OLAN15TA PO; +OLAN5ZYD PO; -ONDANSETRON 4MG/2ML VIAL (J2405) As Ordered; +PEG1POW PO; +PEPT525S PO; +PHEN-500 PO; +POLYOPD OU; -PROPOFOL 200 MG/20 ML VIAL As Ordered; +QUET1TAB7 PO; +QUET5TAB; +QUET5TAB PO; +REME15TA PO; +REST0.05 OU; -ROCURONIUM BROMIDE 50 MG/5 ML VIAL As Ordered; +ROSU10TA5 PO; +TUMS500C PO; +VERA1TAB10 PO; +VERA240C3 PO; +VITA100067 PO; +VITA500019 PO; +VITA500T3 PO; +VITMTA PO; -dexameTHASONE 4 MG/ML 1ML VIAL (J1100) As Ordered
[2018-04-29 19:14] LABS: APPEARANCE, URINE CLEAR (CLEAR); BACTERIA, URINE AUTO NEGATIVE (NEGATIVE); BILIRUBIN, URINE AUTO NEGATIVE (NEGATIVE); BLOOD, URINE BLOOD NEGATIVE (NEGATIVE); COLOR, URINE YELLOW (YELLOW); GLUCOSE, URINE (UA) AUTO NEGATIVE (NEGATIVE); KETONE, URINE AUTO NEGATIVE (NEGATIVE); LEUKOCYTE ESTERASE, URINE AUTO NEGATIVE (NEGATIVE); MUCUS, URINE SMALL (NEGATIVE); NITRITE, URINE AUTO NEGATIVE (NEGATIVE); PROTEIN, URINE AUTO NEGATIVE (NEGATIVE); RBC, URINE AUTO 0 /HPF (0-3); SPECIFIC GRAVITY URINE AUTO 1.014 (1.002-1.035); SQUAMOUS EPITHELIAL CELL UR AU 0 /HPF (0-6); UROBILINOGEN, URINE AUTO 0.2 mg/dL (0.0-2.0); WBC, URINE AUTO 1 /HPF (0-3)
== END ==
LOC: M SMT 17:07
PROVIDERS: ATTEND Nurse Practitioner Family
DX: R33.9 Retention of urine, unspecified (principal)
CPT/HCPCS: 51701; 51798; 81001; 87086; G0463

== ENCOUNTER 2018-05-05 18:59 | Inpatient (IN) | payer MEDICARE ==
[2018-05-05 20:04] LABS: KETONE, URINE AUTO RFX NEGATIVE (NEGATIVE); NITRITE, URINE AUTO RFX NEGATIVE (NEGATIVE); RBC, URINE AUTO RFX 3 /HPF (0-3); SPECIFIC GRAVITY UR AUTO RFX 1.014 (1.002-1.035); SQUAM EPITHELIAL CELL UR AURFX 0 /HPF (0-6)
[2018-05-05 20:06] LABS: LEUKOCYTE ESTERASE UR AUTO RFX 2+ (NEGATIVE); WBC, URINE AUTO RFX 139 /HPF (0-3)
[2018-05-05] MEDS: CIPROFLOXACIN 400 MG in APPROPRIATE DILUENT 1 EA IV (20:15)
[2018-05-05] MEDS: NS 500 ML IV (20:15)
[2018-05-05 20:27] LABS: BASO % 0.3 % (0.0-1.0); EOS # 0.3 10^3/uL (0.0-0.50); EOS % 3.6 % (0.0-3.0); HEMATOCRIT 41.6 % (36.0-47.0); HEMOGLOBIN 13.5 g/dl (12.0-15.5); IMMATURE GRANULOCYTE % 0.4 % (0-3.0); LYMPH # 1.5 10^3/uL (1.5-4.5); LYMPH % 15.7 % (24.0-44.0); MEAN CORPUSCULAR HEMOGLOBIN 28.8 pg (27.0-33.0); MEAN CORPUSCULAR HGB CONC 32.5 g/dl (32.0-36.5); MEAN CORPUSCULAR VOLUME 88.7 fl (80.0-96.0); MONO # 1.2 10^3/uL (0.0-0.8); MONO % 13.3 % (0.0-5.0); NEUTROPHILS # 6.2 10^3/uL (1.8-7.7); NEUTROPHILS % 66.7 % (36.0-66.0); PLATELET COUNT, AUTOMATED 240 10^3/uL (150-450); RED BLOOD COUNT 4.69 10^6/uL (4.00-5.40); RED CELL DISTRIBUTION WIDTH 14.2 % (11.5-14.5); WHITE BLOOD COUNT 9.3 10^3/uL (4.0-10.0)
[2018-05-05 20:29] LABS: ANION GAP 8 MEQ/L (8-16); BLOOD UREA NITROGEN 23 MG/DL (7-18); CALCIUM LEVEL 8.8 MG/DL (8.8-10.2); CARBON DIOXIDE LEVEL 26 MEQ/L (21-32); CHLORIDE LEVEL 102 MEQ/L (98-107); CREATININE FOR GFR 1.15 MG/DL (0.55-1.30); GLOMERULAR FILTRATION RATE 50.1 (>45); GLUCOSE, FASTING 108 MG/DL (70-100); POTASSIUM SERUM 3.6 MEQ/L (3.5-5.1); SODIUM LEVEL 136 MEQ/L (136-145)
[2018-05-05 20:30] LABS: LACTIC ACID SEPSIS PROTOCOL 1.7 MMOL/L (0.4-2.0)
[2018-05-05] MEDS: NS 1,000 ML IV (23:40)
[2018-05-06] MEDS ORDERED: GABAPENTIN 100 MG CAP PO
[2018-05-06] MEDS ORDERED: PILL CRUSHER/CUTTER 1 EACH XX (01:30)
[2018-05-06] MEDS: ROSUVASTATIN 10 MG TAB (CRESTOR) PO ×2 (01:43→21:37)
[2018-05-06] MEDS: lamoTRIgine 100MG TAB PO ×3 (01:43→21:36)
[2018-05-06] MEDS: OLANZapine 5 MG TAB PO ×2 (01:44→21:37)
[2018-05-06] MEDS: MIRTAZAPINE 15 MG TAB PO ×2 (01:44→21:37)
[2018-05-06] MEDS: GABAPENTIN 100 MG CAP PO ×2 (01:44→21:37)
[2018-05-06] MEDS: DOCUSATE SODIUM 100 MG CAP PO ×3 (01:44→21:36)
[2018-05-06] MEDS: VERAPAMIL 120 MG SR TAB PO ×2 (01:45→21:33)
[2018-05-06 06:09] LABS: HEMATOCRIT 38.7 % (36.0-47.0); HEMOGLOBIN 12.8 g/dl (12.0-15.5); MEAN CORPUSCULAR HEMOGLOBIN 28.6 pg (27.0-33.0); MEAN CORPUSCULAR HGB CONC 33.1 g/dl (32.0-36.5); MEAN CORPUSCULAR VOLUME 86.6 fl (80.0-96.0); PLATELET COUNT, AUTOMATED 223 10^3/uL (150-450); RED BLOOD COUNT 4.47 10^6/uL (4.00-5.40); RED CELL DISTRIBUTION WIDTH 13.9 % (11.5-14.5); WHITE BLOOD COUNT 9.6 10^3/uL (4.0-10.0)
[2018-05-06] MEDS: LEVOTHYROXINE 88MCG TABLET (0.088 MG) PO ×2 (06:17→06:19)
[2018-05-06] MEDS: HEPARIN SOD (PORCINE) 5000 UNITS/ML VIAL SC ×3 (06:17→21:33)
[2018-05-06 06:31] LABS: ANION GAP 8 MEQ/L (8-16); BLOOD UREA NITROGEN 17 MG/DL (7-18); CALCIUM LEVEL 8.7 MG/DL (8.8-10.2); CARBON DIOXIDE LEVEL 25 MEQ/L (21-32); CHLORIDE LEVEL 105 MEQ/L (98-107); CREATININE FOR GFR 0.98 MG/DL (0.55-1.30); GLOMERULAR FILTRATION RATE > 60.0 (>45); GLUCOSE, FASTING 120 MG/DL (70-100); POTASSIUM SERUM 3.6 MEQ/L (3.5-5.1); SODIUM LEVEL 138 MEQ/L (136-145)
[2018-05-06] MEDS: TAMSULOSIN 0.4 MG CAP PO (08:41)
[2018-05-06] MEDS: CIPROFLOXACIN 400 MG in APPROPRIATE DILUENT 1 EA IV ×2 (08:41→21:37)
[2018-05-06] MEDS: CYANOCOBALAMIN 500 MCG TAB PO (08:41)
[2018-05-06] MEDS: MULTIVITAMINS/MINERALS THERAP 1 TAB PO (08:41)
[2018-05-06] MEDS: NS 1,000 ML IV (16:11)
[2018-05-06] MEDS: ACETAMINOPHEN TAB 650MG DOSE (2X325MG) PO (21:38)
[2018-05-07] MEDS: HEPARIN SOD (PORCINE) 5000 UNITS/ML VIAL SC ×3 (05:01→23:03)
[2018-05-07] MEDS: NS 1,000 ML IV ×2 (05:01→23:04)
[2018-05-07] MEDS: LEVOTHYROXINE 88MCG TABLET (0.088 MG) PO (06:08)
[2018-05-07] MEDS: CYANOCOBALAMIN 500 MCG TAB PO (09:44)
[2018-05-07] MEDS: DOCUSATE SODIUM 100 MG CAP PO ×2 (09:44→23:02)
[2018-05-07] MEDS: MULTIVITAMINS/MINERALS THERAP 1 TAB PO (09:44)
[2018-05-07] MEDS: TAMSULOSIN 0.4 MG CAP PO (09:44)
[2018-05-07] MEDS: CIPROFLOXACIN 400 MG in APPROPRIATE DILUENT 1 EA IV ×2 (09:44→23:18)
[2018-05-07] MEDS: lamoTRIgine 100MG TAB PO ×2 (09:45→23:02)
[2018-05-07] MEDS: LORazepam 2 MG/ML VIAL (J2060) IV ×2 (17:02→23:04)
[2018-05-07] MEDS: OLANZapine 5 MG TAB PO (23:00)
[2018-05-07] MEDS: GABAPENTIN 100 MG CAP PO (23:00)
[2018-05-07] MEDS: ROSUVASTATIN 10 MG TAB (CRESTOR) PO (23:02)
[2018-05-07] MEDS: MIRTAZAPINE 15 MG TAB PO (23:03)
[2018-05-07] MEDS: ACETAMINOPHEN TAB 650MG DOSE (2X325MG) PO (23:13)
[2018-05-07] MEDS: VERAPAMIL 120 MG SR TAB PO (23:13)
[2018-05-08] MEDS: LEVOTHYROXINE 88MCG TABLET (0.088 MG) PO (06:05)
[2018-05-08] MEDS: HEPARIN SOD (PORCINE) 5000 UNITS/ML VIAL SC ×3 (06:05→21:54)
[2018-05-08] MEDS: CYANOCOBALAMIN 500 MCG TAB PO (08:51)
[2018-05-08] MEDS: CIPROFLOXACIN 400 MG in APPROPRIATE DILUENT 1 EA IV ×2 (08:51→20:56)
[2018-05-08] MEDS: lamoTRIgine 100MG TAB PO ×2 (08:51→20:54)
[2018-05-08] MEDS: NS 1,000 ML IV ×2 (08:51→21:54)
[2018-05-08] MEDS: MULTIVITAMINS/MINERALS THERAP 1 TAB PO (08:51)
[2018-05-08] MEDS: TAMSULOSIN 0.4 MG CAP PO (08:52)
[2018-05-08] MEDS: DOCUSATE SODIUM 100 MG CAP PO ×2 (08:52→20:54)
[2018-05-08] MEDS: GABAPENTIN 100 MG CAP PO (20:54)
[2018-05-08] MEDS: VERAPAMIL 120 MG SR TAB PO (20:55)
[2018-05-08] MEDS: MIRTAZAPINE 15 MG TAB PO (20:55)
[2018-05-08] MEDS: OLANZapine 5 MG TAB PO (20:55)
[2018-05-08] MEDS: ROSUVASTATIN 10 MG TAB (CRESTOR) PO (20:55)
[2018-05-09] MEDS: LORazepam 2 MG/ML VIAL (J2060) IV ×2 (02:06→16:32)
[2018-05-09] MEDS: HEPARIN SOD (PORCINE) 5000 UNITS/ML VIAL SC ×3 (05:32→21:17)
[2018-05-09] MEDS: LEVOTHYROXINE 88MCG TABLET (0.088 MG) PO (06:36)
[2018-05-09 06:39] LABS: BASO # 0.1 10^3/uL (0.0-0.2); BASO % 0.5 % (0.0-1.0); EOS # 0.3 10^3/uL (0.0-0.50); EOS % 2.7 % (0.0-3.0); HEMATOCRIT 34.2 % (36.0-47.0); HEMOGLOBIN 11.4 g/dl (12.0-15.5); IMMATURE GRANULOCYTE % 0.4 % (0-3.0); LYMPH # 1.5 10^3/uL (1.5-4.5); LYMPH % 15.9 % (24.0-44.0); MEAN CORPUSCULAR HEMOGLOBIN 28.6 pg (27.0-33.0); MEAN CORPUSCULAR HGB CONC 33.3 g/dl (32.0-36.5); MEAN CORPUSCULAR VOLUME 85.9 fl (80.0-96.0); MONO % 10.8 % (0.0-5.0); NEUTROPHILS # 6.4 10^3/uL (1.8-7.7); NEUTROPHILS % 69.7 % (36.0-66.0); PLATELET COUNT, AUTOMATED 254 10^3/uL (150-450); RED BLOOD COUNT 3.98 10^6/uL (4.00-5.40); RED CELL DISTRIBUTION WIDTH 13.9 % (11.5-14.5); WHITE BLOOD COUNT 9.2 10^3/uL (4.0-10.0)
[2018-05-09 06:58] LABS: ALBUMIN 2.6 GM/DL (3.2-5.2); ALKALINE PHOSPHATASE 80 U/L (45-117); ALT/SGPT 22 U/L (12-78); ANION GAP 9 MEQ/L (8-16); AST/SGOT 25 U/L (7-37); BILIRUBIN,TOTAL 0.3 MG/DL (0.2-1.0); BLOOD UREA NITROGEN 16 MG/DL (7-18); CALCIUM LEVEL 8.7 MG/DL (8.8-10.2); CARBON DIOXIDE LEVEL 24 MEQ/L (21-32); CHLORIDE LEVEL 107 MEQ/L (98-107); CREATININE FOR GFR 0.88 MG/DL (0.55-1.30); GLOMERULAR FILTRATION RATE > 60.0 (>45); GLUCOSE, FASTING 117 MG/DL (70-100); SODIUM LEVEL 140 MEQ/L (136-145); TOTAL PROTEIN 6.3 GM/DL (6.4-8.2)
[2018-05-09] MEDS: TAMSULOSIN 0.4 MG CAP PO (08:19)
[2018-05-09] MEDS: CYANOCOBALAMIN 500 MCG TAB PO (08:20)
[2018-05-09] MEDS: DOCUSATE SODIUM 100 MG CAP PO ×2 (08:20→21:13)
[2018-05-09] MEDS: MULTIVITAMINS/MINERALS THERAP 1 TAB PO (08:20)
[2018-05-09] MEDS: CIPROFLOXACIN 400 MG in APPROPRIATE DILUENT 1 EA IV (08:20)
[2018-05-09] MEDS: lamoTRIgine 100MG TAB PO ×2 (08:20→21:17)
[2018-05-09] MEDS: NS 1,000 ML IV ×2 (11:46→22:20)
[2018-05-09] MEDS: CIPROFLOXACIN 500 MG TAB PO (17:41)
[2018-05-09] MEDS: MIRTAZAPINE 15 MG TAB PO (21:14)
[2018-05-09] MEDS: GABAPENTIN 100 MG CAP PO (21:15)
[2018-05-09] MEDS: VERAPAMIL 120 MG SR TAB PO (21:15)
[2018-05-09] MEDS: OLANZapine 5 MG TAB PO (21:16)
[2018-05-09] MEDS: ROSUVASTATIN 10 MG TAB (CRESTOR) PO (21:17)
[2018-05-10] MEDS: CIPROFLOXACIN 500 MG TAB PO ×2 (05:49→16:48)
[2018-05-10] MEDS: LEVOTHYROXINE 88MCG TABLET (0.088 MG) PO (05:49)
[2018-05-10] MEDS: HEPARIN SOD (PORCINE) 5000 UNITS/ML VIAL SC ×3 (05:50→20:34)
[2018-05-10 06:41] LABS: HEMATOCRIT 33.8 % (36.0-47.0); HEMOGLOBIN 11.2 g/dl (12.0-15.5); MEAN CORPUSCULAR HEMOGLOBIN 28.2 pg (27.0-33.0); MEAN CORPUSCULAR HGB CONC 33.1 g/dl (32.0-36.5); MEAN CORPUSCULAR VOLUME 85.1 fl (80.0-96.0); PLATELET COUNT, AUTOMATED 279 10^3/uL (150-450); RED BLOOD COUNT 3.97 10^6/uL (4.00-5.40); RED CELL DISTRIBUTION WIDTH 14.2 % (11.5-14.5)
[2018-05-10 06:53] LABS: ALBUMIN 2.4 GM/DL (3.2-5.2); ANION GAP 8 MEQ/L (8-16); BLOOD UREA NITROGEN 16 MG/DL (7-18); CALCIUM LEVEL 8.3 MG/DL (8.8-10.2); CARBON DIOXIDE LEVEL 25 MEQ/L (21-32); CHLORIDE LEVEL 109 MEQ/L (98-107); CREATININE FOR GFR 0.82 MG/DL (0.55-1.30); GLOMERULAR FILTRATION RATE > 60.0 (>45); GLUCOSE, FASTING 104 MG/DL (70-100); PHOSPHORUS LEVEL 2.6 MG/DL (2.5-4.9); SODIUM LEVEL 142 MEQ/L (136-145)
[2018-05-10] MEDS: MULTIVITAMINS/MINERALS THERAP 1 TAB PO (08:12)
[2018-05-10] MEDS: lamoTRIgine 100MG TAB PO ×2 (08:12→20:34)
[2018-05-10] MEDS: TAMSULOSIN 0.4 MG CAP PO (08:12)
[2018-05-10] MEDS: DOCUSATE SODIUM 100 MG CAP PO ×2 (08:12→20:34)
[2018-05-10] MEDS: CYANOCOBALAMIN 500 MCG TAB PO (08:13)
[2018-05-10] MEDS: LORazepam 2 MG/ML VIAL (J2060) IV ×2 (10:34→16:47)
[2018-05-10] MEDS: POTASSIUM CHLORIDE 10 MEQ SR TABLET PO ×2 (11:50→14:11)
[2018-05-10] MEDS: NS 1,000 ML IV ×2 (11:52→23:39)
[2018-05-10] MEDS: MOM 30ML SUSPENSION UDC PO (18:26)
[2018-05-10] MEDS: SENOKOT S TAB PO (20:34)
[2018-05-10] MEDS: QUEtiapine FUMARATE 100 MG TAB PO (20:34)
[2018-05-10] MEDS: ROSUVASTATIN 10 MG TAB (CRESTOR) PO (20:35)
[2018-05-10] MEDS: OLANZapine 5 MG TAB PO (20:35)
[2018-05-10] MEDS: GABAPENTIN 100 MG CAP PO (20:37)
[2018-05-10] MEDS: MIRTAZAPINE 15 MG TAB PO (20:37)
[2018-05-10] MEDS: ONDANSETRON 4MG/2ML VIAL (J2405) IV (21:28)
[2018-05-10] MEDS: VERAPAMIL 120 MG SR TAB PO (21:48)
[2018-05-11] MEDS: HEPARIN SOD (PORCINE) 5000 UNITS/ML VIAL SC ×3 (05:05→21:48)
[2018-05-11] MEDS: CIPROFLOXACIN 500 MG TAB PO ×2 (05:32→17:34)
[2018-05-11] MEDS: LEVOTHYROXINE 88MCG TABLET (0.088 MG) PO (05:32)
[2018-05-11] MEDS: DOCUSATE SODIUM 100 MG CAP PO ×3 (08:38→20:41)
[2018-05-11] MEDS: MULTIVITAMINS/MINERALS THERAP 1 TAB PO (08:38)
[2018-05-11] MEDS: SENOKOT S TAB PO ×2 (08:38→20:40)
[2018-05-11] MEDS: lamoTRIgine 100MG TAB PO ×2 (08:38→20:39)
[2018-05-11] MEDS: TAMSULOSIN 0.4 MG CAP PO ×2 (08:38→09:00)
[2018-05-11] MEDS: CYANOCOBALAMIN 500 MCG TAB PO (08:39)
[2018-05-11] MEDS ORDERED: MOM 30ML SUSPENSION UDC PO (09:00)
[2018-05-11] MEDS: NS 1,000 ML IV ×2 (13:38→20:42)
[2018-05-11 14:58] LABS: ANION GAP 6 MEQ/L (8-16); BLOOD UREA NITROGEN 17 MG/DL (7-18); CALCIUM LEVEL 8.7 MG/DL (8.8-10.2); CARBON DIOXIDE LEVEL 26 MEQ/L (21-32); CHLORIDE LEVEL 109 MEQ/L (98-107); CREATININE FOR GFR 0.84 MG/DL (0.55-1.30); GLOMERULAR FILTRATION RATE > 60.0 (>45); GLUCOSE, FASTING 104 MG/DL (70-100); MAGNESIUM LEVEL 2.2 MG/DL (1.8-2.4); POTASSIUM SERUM 4.2 MEQ/L (3.5-5.1); SODIUM LEVEL 141 MEQ/L (136-145)
[2018-05-11] MEDS: MIRTAZAPINE 15 MG TAB PO (20:40)
[2018-05-11] MEDS: OLANZapine 5 MG TAB PO (20:41)
[2018-05-11] MEDS: VERAPAMIL 120 MG SR TAB PO (20:41)
[2018-05-11] MEDS: ROSUVASTATIN 10 MG TAB (CRESTOR) PO (20:43)
[2018-05-11] MEDS: ACETAMINOPHEN TAB 650MG DOSE (2X325MG) PO (21:49)
[2018-05-12] MEDS: LORazepam 2 MG/ML VIAL (J2060) IV ×2 (00:05→08:09)
[2018-05-12] MEDS: LEVOTHYROXINE 88MCG TABLET (0.088 MG) PO (05:38)
[2018-05-12] MEDS: HEPARIN SOD (PORCINE) 5000 UNITS/ML VIAL SC ×3 (05:39→21:57)
[2018-05-12] MEDS: CIPROFLOXACIN 500 MG TAB PO ×2 (05:39→18:00)
[2018-05-12 06:39] LABS: ANION GAP 6 MEQ/L (8-16); BLOOD UREA NITROGEN 20 MG/DL (7-18); CALCIUM LEVEL 8.8 MG/DL (8.8-10.2); CARBON DIOXIDE LEVEL 26 MEQ/L (21-32); CHLORIDE LEVEL 110 MEQ/L (98-107); CREATININE FOR GFR 0.88 MG/DL (0.55-1.30); GLOMERULAR FILTRATION RATE > 60.0 (>45); GLUCOSE, FASTING 109 MG/DL (70-100); POTASSIUM SERUM 3.3 MEQ/L (3.5-5.1); SODIUM LEVEL 142 MEQ/L (136-145)
[2018-05-12] MEDS: KCL 10MEQ/100ML SWI (KRUN) 10 MEQ in APPROPRIATE DILUENT 1 EA IV ×4 (07:12→10:10)
[2018-05-12] MEDS: TAMSULOSIN 0.4 MG CAP PO (09:14)
[2018-05-12] MEDS: SENOKOT S TAB PO ×2 (09:14→20:56)
[2018-05-12] MEDS: MULTIVITAMINS/MINERALS THERAP 1 TAB PO (09:14)
[2018-05-12] MEDS: CYANOCOBALAMIN 500 MCG TAB PO (09:14)
[2018-05-12] MEDS: lamoTRIgine 100MG TAB PO ×2 (09:15→20:56)
[2018-05-12] MEDS: DOCUSATE SODIUM 100 MG CAP PO ×2 (09:15→20:56)
[2018-05-12] MEDS: LORazepam 1 MG TAB PO ×2 (14:21→20:56)
[2018-05-12] MEDS: ACETAMINOPHEN TAB 650MG DOSE (2X325MG) PO (14:22)
[2018-05-12] MEDS: MIRTAZAPINE 15 MG TAB PO (20:56)
[2018-05-12] MEDS: ROSUVASTATIN 10 MG TAB (CRESTOR) PO (20:56)
[2018-05-12] MEDS: OLANZapine 5 MG TAB PO (20:56)
[2018-05-12] MEDS: VERAPAMIL 120 MG SR TAB PO (20:57)
[2018-05-13] MEDS: LORazepam 1 MG TAB PO ×2 (06:12→20:16)
[2018-05-13] MEDS: LEVOTHYROXINE 88MCG TABLET (0.088 MG) PO (06:12)
[2018-05-13 06:26] LABS: ANION GAP 8 MEQ/L (8-16); BLOOD UREA NITROGEN 12 MG/DL (7-18); CALCIUM LEVEL 9.5 MG/DL (8.8-10.2); CARBON DIOXIDE LEVEL 28 MEQ/L (21-32); CHLORIDE LEVEL 105 MEQ/L (98-107); CREATININE FOR GFR 0.94 MG/DL (0.55-1.30); GLOMERULAR FILTRATION RATE > 60.0 (>45); GLUCOSE, FASTING 100 MG/DL (70-100); POTASSIUM SERUM 3.3 MEQ/L (3.5-5.1); SODIUM LEVEL 141 MEQ/L (136-145)
[2018-05-13] MEDS: TAMSULOSIN 0.4 MG CAP PO (09:21)
[2018-05-13] MEDS: DOCUSATE SODIUM 100 MG CAP PO ×2 (09:21→20:17)
[2018-05-13] MEDS: CYANOCOBALAMIN 500 MCG TAB PO (09:21)
[2018-05-13] MEDS: lamoTRIgine 100MG TAB PO ×2 (09:21→20:16)
[2018-05-13] MEDS: SENOKOT S TAB PO ×2 (09:21→20:16)
[2018-05-13] MEDS: MULTIVITAMINS/MINERALS THERAP 1 TAB PO (09:21)
[2018-05-13] MEDS: HEPARIN SOD (PORCINE) 5000 UNITS/ML VIAL SC ×3 (14:36→23:20)
[2018-05-13] MEDS: OLANZapine 5 MG TAB PO (20:16)
[2018-05-13] MEDS: ROSUVASTATIN 10 MG TAB (CRESTOR) PO (20:16)
[2018-05-13] MEDS: MIRTAZAPINE 15 MG TAB PO (20:17)
[2018-05-13] MEDS: VERAPAMIL 120 MG SR TAB PO (20:18)
[2018-05-14] MEDS: LEVOTHYROXINE 88MCG TABLET (0.088 MG) PO (05:58)
[2018-05-14] MEDS: HEPARIN SOD (PORCINE) 5000 UNITS/ML VIAL SC (06:11)
[2018-05-14 06:43] LABS: ANION GAP 10 MEQ/L (8-16); BLOOD UREA NITROGEN 21 MG/DL (7-18); CALCIUM LEVEL 9.6 MG/DL (8.8-10.2); CARBON DIOXIDE LEVEL 26 MEQ/L (21-32); CHLORIDE LEVEL 105 MEQ/L (98-107); CREATININE FOR GFR 1.07 MG/DL (0.55-1.30); GLOMERULAR FILTRATION RATE 54.5 (>45); GLUCOSE, FASTING 104 MG/DL (70-100); POTASSIUM SERUM 3.3 MEQ/L (3.5-5.1); SODIUM LEVEL 141 MEQ/L (136-145)
[2018-05-14] MEDS: SENOKOT S TAB PO (09:58)
[2018-05-14] MEDS: MULTIVITAMINS/MINERALS THERAP 1 TAB PO (09:58)
[2018-05-14] MEDS: DOCUSATE SODIUM 100 MG CAP PO (09:59)
[2018-05-14] MEDS: POTASSIUM CHLORIDE 10 MEQ SR TABLET PO (09:59)
[2018-05-14] MEDS: TAMSULOSIN 0.4 MG CAP PO (09:59)
[2018-05-14] MEDS: lamoTRIgine 100MG TAB PO (09:59)
[2018-05-14] MEDS: CYANOCOBALAMIN 500 MCG TAB PO (09:59)
== END 2018-05-14 12:39 | disposition home or self-care (01) | DRG 689 ==
LOC: M MSPAV 05-06 00:42 → M ED 18:59 → M ED INP 23:40
DX: N39.0 Urinary tract infection, site not specified (principal); G92 Toxic encephalopathy; F01.50 Vascular dementia, unspecified severity, without behavioral disturbance, psychotic disturbance, mood disturbance, and anxiety; I10 Essential (primary) hypertension; E03.9 Hypothyroidism, unspecified; E78.5 Hyperlipidemia, unspecified; R33.9 Retention of urine, unspecified; K59.00 Constipation, unspecified; E87.6 Hypokalemia; Z79.899 Other long term (current) drug therapy

== ENCOUNTER → 2018-05-20 | Outpatient (REF) | LOC: SKLAB5 07:56 | PROVIDERS: ATTEND Family Medicine | DX: E03.9 Hypothyroidism, unspecified (principal) ==

== ENCOUNTER → 2018-05-22 | Outpatient (REF) | payer MEDICARE ==
[~2018-05-22] MED LIST changes: -AMLO10TA4 PO; +AMLO10TA5 PO
[2018-05-23 00:27] LABS: APPEARANCE, URINE CLEAR (CLEAR); BACTERIA, URINE AUTO NEGATIVE (NEGATIVE); BILIRUBIN, URINE AUTO NEGATIVE (NEGATIVE); BLOOD, URINE BLOOD NEGATIVE (NEGATIVE); COLOR, URINE STRAW (YELLOW); GLUCOSE, URINE (UA) AUTO NEGATIVE (NEGATIVE); KETONE, URINE AUTO NEGATIVE (NEGATIVE); LEUKOCYTE ESTERASE, URINE AUTO 2+ (NEGATIVE); NITRITE, URINE AUTO NEGATIVE (NEGATIVE); PROTEIN, URINE AUTO NEGATIVE (NEGATIVE); RBC, URINE AUTO 3 /HPF (0-3); SPECIFIC GRAVITY URINE AUTO 1.004 (1.002-1.035); SQUAMOUS EPITHELIAL CELL UR AU 0 /HPF (0-6); UROBILINOGEN, URINE AUTO 0.2 mg/dL (0.0-2.0); WBC, URINE AUTO 23 /HPF (0-3)
== END ==
LOC: SKLAB5 21:41
PROVIDERS: ATTEND Family Medicine
DX: R50.9 Fever, unspecified (principal); R41.82 Altered mental status, unspecified

== ENCOUNTER → 2018-05-23 | Outpatient (REF) | payer MEDICARE ==
[~2018-05-23] MED LIST changes: +AMLO10TA4 PO; -AMLO10TA5 PO
== END ==
LOC: SKLAB5 10:20
PROVIDERS: ATTEND Family Medicine
DX: R39.89 Other symptoms and signs involving the genitourinary system (principal)

== ENCOUNTER 2018-06-14 18:09 | Emergency (ER) | payer MEDICARE ==
[~2018-06-14] VITALS: Ht 162.6 cm; Wt 65.9 kg
[~2018-06-14 18:09] MED LIST changes: -AMLO10TA4 PO; +AMLO10TA5 PO
--- NOTE | 2018-06-14 18:46 | REP ---
Clinical: Altered mental status. Comparison: 05/11/2018. Findings: Mediastinum and cardiac silhouette are normal. Bibasilar fibroatelectatic changes without focal consolidation, effusion, or pneumothorax. Skeletal structures are intact. Impression: Chronic basilar changes. No focal consolidation or effusion. Electronically Signed by Ernesto More MD 06/14/2018 06:37 P
[2018-06-14 19:09] LABS: BASO # 0.1 10^3/uL (0.0-0.2); BASO % 0.8 % (0.0-1.0); EOS # 0.2 10^3/uL (0.0-0.50); EOS % 2.4 % (0.0-3.0); HEMATOCRIT 41.1 % (36.0-47.0); HEMOGLOBIN 13.8 g/dl (12.0-15.5); LYMPH # 1.4 10^3/uL (1.5-4.5); LYMPH % 16.5 % (24.0-44.0); MEAN CORPUSCULAR HEMOGLOBIN 28.9 pg (27.0-33.0); MEAN CORPUSCULAR HGB CONC 33.6 g/dl (32.0-36.5); MEAN CORPUSCULAR VOLUME 86.2 fl (80.0-96.0); MONO # 0.8 10^3/uL (0.0-0.8); MONO % 9.2 % (0.0-5.0); NEUTROPHILS # 6.2 10^3/uL (1.8-7.7); NEUTROPHILS % 70.6 % (36.0-66.0); PLATELET COUNT, AUTOMATED 280 10^3/uL (150-450); RED BLOOD COUNT 4.77 10^6/uL (4.00-5.40); WHITE BLOOD COUNT 8.7 10^3/uL (4.0-10.0)
[2018-06-14 19:43] LABS: ALT/SGPT 34 U/L (12-78); BILIRUBIN,DIRECT < 0.1 MG/DL (0.0-0.2); BILIRUBIN,TOTAL 0.3 MG/DL (0.2-1.0); BLOOD UREA NITROGEN 30 MG/DL (7-18); CALCIUM LEVEL 9.2 MG/DL (8.8-10.2); CARBON DIOXIDE LEVEL 25 MEQ/L (21-32); CHLORIDE LEVEL 102 MEQ/L (98-107); CPK CREATINE PHOSPHOKINASE 106 U/L (26-192); CREATININE FOR GFR 1.11 MG/DL (0.55-1.30); GLOMERULAR FILTRATION RATE 52.2 (>45); GLUCOSE, FASTING 108 MG/DL (70-100); MB/CK RELATIVE INDEX 2.92 (< OR =4); POTASSIUM SERUM 3.9 MEQ/L (3.5-5.1); SODIUM LEVEL 137 MEQ/L (136-145); TOTAL PROTEIN 6.9 GM/DL (6.4-8.2); TROPONIN I < 0.02 NG/ML (< 0.10)
[2018-06-14] MEDS ORDERED: NS 1,000 ML IV ONE (20:45)
[2018-06-14 22:01] VITALS: BP 145/73
--- NOTE | 2018-06-15 21:14 | ECGEPIP ---
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
== END 2018-06-14 22:40 | disposition home or self-care (01) ==
LOC: M ED 18:09
DX: E86.0 Dehydration (principal); R33.9 Retention of urine, unspecified; I44.4 Left anterior fascicular block; I10 Essential (primary) hypertension; K59.00 Constipation, unspecified; E03.9 Hypothyroidism, unspecified; F03.90 Unspecified dementia, unspecified severity, without behavioral disturbance, psychotic disturbance, mood disturbance, and anxiety; F32.9 Major depressive disorder, single episode, unspecified; Z79.899 Other long term (current) drug therapy

== ENCOUNTER → 2018-07-19 | Outpatient (REF) | payer MEDICARE | LOC: M SMT 17:30 | PROVIDERS: ATTEND Nurse Practitioner Family | DX: R30.0 Dysuria (principal) ==

== ENCOUNTER → 2018-08-04 | Outpatient (REF) | payer MEDICARE ==
[~2018-08-04] MED LIST changes: +VERA120T4 PO; -VERA1TAB10 PO
[2018-08-04 18:43] LABS: APPEARANCE, URINE CLEAR (CLEAR); BACTERIA, URINE AUTO NEGATIVE (NEGATIVE); BILIRUBIN, URINE AUTO NEGATIVE (NEGATIVE); BLOOD, URINE BLOOD NEGATIVE (NEGATIVE); COLOR, URINE YELLOW (YELLOW); GLUCOSE, URINE (UA) AUTO NEGATIVE (NEGATIVE); KETONE, URINE AUTO NEGATIVE (NEGATIVE); LEUKOCYTE ESTERASE, URINE AUTO NEGATIVE (NEGATIVE); MUCUS, URINE SMALL (NEGATIVE); NITRITE, URINE AUTO NEGATIVE (NEGATIVE); PROTEIN, URINE AUTO NEGATIVE (NEGATIVE); RBC, URINE AUTO 1 /HPF (0-3); SPECIFIC GRAVITY URINE AUTO 1.016 (1.002-1.035); SQUAMOUS EPITHELIAL CELL UR AU 0 /HPF (0-6); WBC, URINE AUTO 2 /HPF (0-3)
== END ==
LOC: M SMT 17:27
PROVIDERS: ATTEND Nurse Practitioner Family
DX: N39.0 Urinary tract infection, site not specified (principal)
CPT/HCPCS: 51701; 81001; 87086; G0463

== ENCOUNTER → 2018-10-13 | Outpatient (REF) | payer MEDICARE ==
[~2018-10-13] MED LIST changes: +CYAN500T8 PO; -ROSU10TA5 PO; +ROSU10TA6 PO; -VITA500T3 PO
[2018-10-13 14:37] LABS: APPEARANCE, URINE CLEAR (CLEAR); BACTERIA, URINE AUTO NEGATIVE (NEGATIVE); BILIRUBIN, URINE AUTO NEGATIVE (NEGATIVE); BLOOD, URINE BLOOD NEGATIVE (NEGATIVE); COLOR, URINE YELLOW (YELLOW); GLUCOSE, URINE (UA) AUTO NEGATIVE (NEGATIVE); KETONE, URINE AUTO NEGATIVE (NEGATIVE); LEUKOCYTE ESTERASE, URINE AUTO NEGATIVE (NEGATIVE); NITRITE, URINE AUTO NEGATIVE (NEGATIVE); PROTEIN, URINE AUTO NEGATIVE (NEGATIVE); RBC, URINE AUTO 0 /HPF (0-3); SQUAMOUS EPITHELIAL CELL UR AU 0 /HPF (0-6); UROBILINOGEN, URINE AUTO 0.2 mg/dL (0.0-2.0); WBC, URINE AUTO 0 /HPF (0-3)
== END ==
LOC: M SMT 13:34
PROVIDERS: ATTEND Nurse Practitioner Family
DX: R31.9 Hematuria, unspecified (principal)

== ENCOUNTER → 2018-10-18 | Outpatient (CLI) | payer MEDICARE ==
[~2018-10-18] MED LIST changes: -CYAN500T8 PO; +ROSU10TA5 PO; -ROSU10TA6 PO; +VITA500T3 PO
[2018-10-18 17:54] LABS: CREATININE FOR GFR 1.01 MG/DL (0.55-1.30); GLOMERULAR FILTRATION RATE 58.2 (>45); POTASSIUM SERUM 3.6 MEQ/L (3.5-5.1)
== END ==
LOC: M LAB 16:17
PROVIDERS: ATTEND Nurse Practitioner Family
DX: R31.0 Gross hematuria (principal)

== ENCOUNTER → 2018-11-02 | Outpatient (CLI) | payer MEDICARE ==
[~2018-11-02] MED LIST changes: +ISOVUE-370 76% 100ML VIAL (Q9967) As Ordered ONE
--- NOTE | 2018-11-02 13:30 | REP ---
CT ABDOMEN AND PELVIS WITH AND WITHOUT IV CONTRAST, (CT UROGRAM): TECHNIQUE: Axial noncontrast images through the abdomen followed by contrast-enhanced images through the abdomen and pelvis using 100 mL Isovue 370 intravenous contrast material, with coronal and sagittal reformations. Visualized lung bases demonstrate mild interstitial fibrosis. Liver demonstrates no mass. Gallbladder is grossly unremarkable. There is no biliary dilatation. The spleen is normal in size with no intrinsic abnormality. The adrenal glands are normal. Pancreas demonstrates no mass and no evidence of pancreatic duct dilatation. There are several subcentimeter hypodensities in the right kidney compatible with subcentimeter cysts. One of them in the upper pole reaches 1 cm in diameter. 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 No other left renal mass is seen. The ureters demonstrate no stricture or filling defect. No calculus or wall thickening is seen of the urinary bladder. No definite filling defect is seen in a mildly distended urinary bladder on delayed images. There is mild atherosclerotic calcification of the abdominal aorta without aneurysm. There is no adenopathy. There is no free air or free fluid. No bowel wall thickening is seen. The appendix is normal. Two heavily calcified fibroids are seen, one anteriorly measuring 1.9 cm and one posteriorly, which is smaller in size. Ovaries are normal. IMPRESSION: No renal, ureteral, or bladder calculus. Several subcentimeter cysts are seen in the right kidney. 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 No other abnormality is seen involving the urinary tract. Two calcified fibroids are seen in the uterus. Electronically Signed by Micha Hsu MD 11/02/2018 04:32 P
== END ==
LOC: M RAD 10:32
PROVIDERS: ATTEND Nurse Practitioner Family
DX: N28.1 Cyst of kidney, acquired (principal); D17.71 Benign lipomatous neoplasm of kidney
CPT/HCPCS: 74178; Q9967

== ENCOUNTER → 2018-11-19 | Outpatient (REF) | payer MEDICARE ==
[~2018-11-19] MED LIST changes: +CYAN500T8 PO; -ISOVUE-370 76% 100ML VIAL (Q9967) As Ordered ONE; -ROSU10TA5 PO; +ROSU10TA6 PO; -VITA500T3 PO
[2018-11-19 13:06] LABS: APPEARANCE, URINE CLEAR (CLEAR); BACTERIA, URINE AUTO 1+ (NEGATIVE); BILIRUBIN, URINE AUTO NEGATIVE (NEGATIVE); BLOOD, URINE BLOOD NEGATIVE (NEGATIVE); COLOR, URINE AMBER (YELLOW); GLUCOSE, URINE (UA) AUTO NEGATIVE (NEGATIVE); KETONE, URINE AUTO NEGATIVE (NEGATIVE); LEUKOCYTE ESTERASE, URINE AUTO NEGATIVE (NEGATIVE); MUCUS, URINE SMALL (NEGATIVE); NITRITE, URINE AUTO POSITIVE (NEGATIVE); PROTEIN, URINE AUTO NEGATIVE (NEGATIVE); RBC, URINE AUTO 1 /HPF (0-3); SPECIFIC GRAVITY URINE AUTO 1.016 (1.002-1.035); SQUAMOUS EPITHELIAL CELL UR AU 0 /HPF (0-6); WBC, URINE AUTO 0 /HPF (0-3)
== END ==
LOC: M SMT 12:17
PROVIDERS: ATTEND Nurse Practitioner Family
DX: N39.0 Urinary tract infection, site not specified (principal)

== ENCOUNTER → 2018-12-14 | Outpatient (REF) | payer MEDICARE ==
[~2018-12-14] MED LIST changes: +ARIP1TAB2 PO; +BACT800T5 PO; +CRES10TA PO; +LEXA1TAB PO
== END ==
LOC: M LAB REF 19:28
PROVIDERS: ATTEND Physician Assistant Medical
DX: N39.0 Urinary tract infection, site not specified (principal)

== ENCOUNTER 2018-12-19 16:42 | Emergency (ER) | payer MEDICARE ==
[~2018-12-19] VITALS: Ht 157.5 cm; Wt 63.6 kg
[~2018-12-19 16:42] MED LIST changes: -ARIP1TAB2 PO; -BACT800T5 PO; -CRES10TA PO; -LEXA1TAB PO
[2018-12-19] MEDS ORDERED: NS 1,000 ML IV SCH (17:05)
[2018-12-19] MEDS ORDERED: BACT800T5 PO (17:10)
[2018-12-19] MEDS ORDERED: LEXA1TAB PO (17:10)
[2018-12-19] MEDS ORDERED: CRES10TA PO (17:10)
[2018-12-19] MEDS ORDERED: ARIP1TAB2 PO (17:10)
[2018-12-19 17:49] LABS: VENOUS BASE EXCESS -0.9 (-2.0-2.0); VENOUS HCO3 23.2 MEQ/L (23.0-27.0); VENOUS PARTIAL PRESSURE CO2 36.8 mmHg (38.0-50.0); VENOUS PARTIAL PRESSURE O2 44.3 mmHg (30.0-50.0); VENOUS PH 7.417 UNITS (7.330-7.430); VENOUS STANDARD HCO3 23.3 MEQ/L; VENOUS TOTAL CO2 24.3 MEQ/L (24.0-28.0)
[2018-12-19 17:53] LABS: BASO # 0.1 10^3/uL (0.0-0.2); BASO % 0.8 % (0.0-1.0); EOS # 0.2 10^3/uL (0.0-0.50); EOS % 2.6 % (0.0-3.0); HEMATOCRIT 42.1 % (36.0-47.0); HEMOGLOBIN 14.5 g/dl (12.0-15.5); LYMPH # 1.9 10^3/uL (1.5-4.5); LYMPH % 21.1 % (24.0-44.0); MEAN CORPUSCULAR HEMOGLOBIN 30.8 pg (27.0-33.0); MEAN CORPUSCULAR HGB CONC 34.4 g/dl (32.0-36.5); MEAN CORPUSCULAR VOLUME 89.4 fl (80.0-96.0); MONO # 0.8 10^3/uL (0.0-0.8); MONO % 8.5 % (0.0-5.0); NEUTROPHILS # 6.1 10^3/uL (1.8-7.7); NEUTROPHILS % 66.6 % (36.0-66.0); PLATELET COUNT, AUTOMATED 282 10^3/uL (150-450); RED BLOOD COUNT 4.71 10^6/uL (4.00-5.40); WHITE BLOOD COUNT 9.1 10^3/uL (4.0-10.0)
--- NOTE | 2018-12-19 18:17 | ECGEPIP ---
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
[2018-12-19 18:19] LABS: ALBUMIN 4.1 GM/DL (3.2-5.2); ALT/SGPT 21 U/L (12-78); BILIRUBIN,DIRECT 0.1 MG/DL (0.0-0.2); BILIRUBIN,TOTAL 0.3 MG/DL (0.2-1.0); BLOOD UREA NITROGEN 32 MG/DL (7-18); CALCIUM LEVEL 10.1 MG/DL (8.8-10.2); CARBON DIOXIDE LEVEL 24 MEQ/L (21-32); CHLORIDE LEVEL 105 MEQ/L (98-107); CK-MB VALUE MASS 9.6 NG/ML (<3.6); CPK CREATINE PHOSPHOKINASE 304 U/L (26-192); CREATININE FOR GFR 1.35 MG/DL (0.55-1.30); GLOMERULAR FILTRATION RATE 41.6 (>45); GLUCOSE, FASTING 98 MG/DL (70-100); MB/CK RELATIVE INDEX 3.16 (< OR =4); POTASSIUM SERUM 3.7 MEQ/L (3.5-5.1); SODIUM LEVEL 137 MEQ/L (136-145); THYROID STIMULATING HORMONE 0.291 uIU/ML (0.358-3.740); TROPONIN I < 0.02 NG/ML (< 0.10)
--- NOTE | 2018-12-19 18:23 | REP ---
Clinical: Hypoxia . Comparison: 05/11/2018 . Findings: Examination is limited by portable technique, underpenetration and poor inspiratory effort. The mediastinum and cardiac silhouette are stable and within normal limits for portable technique. The lung hemphill are clear without acute consolidation, effusion, or pneumothorax. Skeletal structures are intact. Impression: No focal consolidation or effusion appreciated. Electronically Signed by Ernesto More MD 12/19/2018 06:14 P
[2018-12-19] MEDS ORDERED: NS 1,000 ML IV ONE (18:30)
--- NOTE | 2018-12-19 19:02 | REPVR ---
EXAM: CT Head Without Contrast EXAM DATE/TIME: 12/19/2018 5:57 PM CLINICAL HISTORY: 68 years old, female; Altered mental status/memory loss TECHNIQUE: Imaging protocol: Computed tomography images of the head without contrast. Radiation optimization: All CT scans at this facility use at least one of these dose optimization techniques: automated exposure control; mA and/or kV adjustment per patient size (includes targeted exams where dose is matched to clinical indication); or iterative reconstruction. COMPARISON: CT Head without contrast 05/05/2018 8:46 PM FINDINGS: Brain: There is no evidence of acute intracranial bleed. Along the lateral aspect of the left frontal lobe, there is a subarachnoid low-density/ CSF density collection. This measures 1.3 CM in greatest thickness. This is seen on the previous 2 exams however increased by 2 mm. This extends along the left frontal lobe abutting the left sylvian fissure and at the frontoparietal junction. Considerations for this collection would include a hygroma and also chronic/old subdural hematoma. There is no evidence of acute blood. There is related focal atrophy since the left sylvian fissure is enlarged. There is prominence of the ventricles but unchanged. There is mild patchy low density in the periventricular white matter consistent with chronic ischemic changes. Bones/joints: There is no evidence of fracture. Sinuses: Clear paranasal sinuses. Mastoid air cells: Clear mastoid air cells. Soft tissues: Unremarkable. IMPRESSION: Along the lateral aspect of the left frontal lobe there is a subdural CSF density collection 1.3 CM in thickness increased by 2 mm since the previous 2 exams. 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 No acute findings seen. Correlation with an MRI scan with contrast would be helpful. Electronically signed by: Alex Hurtado On 12/19/2018 19:01:54 PM
--- NOTE | 2018-12-19 19:18 | REPVR ---
EXAM: CT Abdomen and Pelvis Without Contrast EXAM DATE/TIME: 12/19/2018 6:47 PM CLINICAL HISTORY: 68 years old, female; Abdominal pain; Generalized; Additional info: Abd pain TECHNIQUE: Imaging protocol: Axial computed tomography images of the abdomen and pelvis without contrast. Coronal and sagittal reformatted images were created and reviewed. Radiation optimization: All CT scans at this facility use at least one of these dose optimization techniques: automated exposure control; mA and/or kV adjustment per patient size (includes targeted exams where dose is matched to clinical indication); or iterative reconstruction. COMPARISON: CT ABD PELVIS W/O FOL BY WIT 11/02/2018 10:59 AM FINDINGS: Lungs: Clear lung bases. Heart: Small pericardial effusion. The heart is top normal in size. Liver: Normal appearing liver. Gallbladder and bile ducts: Contracted gallbladder. Pancreas: Normal pancreas. Spleen: Normal spleen. Adrenals: Normal adrenal glands. Kidneys and ureters: There is no evidence of calcified stone right or left kidney. 4 CM fat containing benign lesion of the upper pole of the left kidney. There is no evidence of hydronephrosis. Stomach and bowel: Normal appearing small bowel. There is evidence of constipation. Appendix: Normal-appearing appendix. Intraperitoneal space: There is no evidence of free fluid in the abdomen or the pelvis. Vasculature: There is calcification of the aorta consistent with atherosclerotic change. Lymph nodes: Normal. No enlarged lymph nodes. Bladder: Normal urinary bladder. Reproductive: Calcified fibroid upper aspect of the uterus. Bones/joints: There is scoliosis of the thoracolumbar junction and also moderate osteophyte formation. There is osteophyte formation throughout the thoracic and lumbar spine and also facet hypertrophy. IMPRESSION: 1. Moderate constipation. 2. No evidence of inflammation. 3. Degenerative changes of the lumbar spine. Electronically signed by: Alex Hurtado On 12/19/2018 19:18:23 PM
[2018-12-19] MEDS ORDERED: LORazepam 2 MG/ML VIAL (J2060) IV STA (19:20)
[2018-12-19] MEDS ORDERED: PROHANCE 279.3MG/ML 5ML VIAL (A9576) As Ordered ONE (19:25)
[2018-12-19] MEDS ORDERED: MAGNESIUM CITRATE 300 ML BTL PO ONE (21:00)
[2018-12-19 21:23] VITALS: BP 118/60
== END 2018-12-19 21:25 | disposition home or self-care (01) ==
LOC: M ED 16:42
DX: G30.9 Alzheimer's disease, unspecified (principal); I10 Essential (primary) hypertension; E07.9 Disorder of thyroid, unspecified; E78.5 Hyperlipidemia, unspecified; K21.9 Gastro-esophageal reflux disease without esophagitis; Z79.899 Other long term (current) drug therapy; Z79.890 Hormone replacement therapy
CPT/HCPCS: 70450; 71045; 74176; 80048; 80076; 81001; 82140; 82550; 82553; 82803; 83605; 83930; 84443; 84484; 85025; 87040; 93005; 93041; 96361; 96374; 99285; J2060

== ENCOUNTER → 2019-05-12 | Outpatient (REF) | payer MEDICARE ==
[~2019-05-12] MED LIST changes: +ARIP1TAB2 PO; +BACT800T5 PO; +CLON0.5T2 PO; -CLON0.5T8 PO; +CRES10TA PO; -LAMO100T PO; +LAMO100T3 PO; +LEXA1TAB PO
[2019-05-12 19:35] LABS: AMORPHOUS SEDIMENT SMALL (NEGATIVE); APPEARANCE, URINE HAZY (CLEAR); BACTERIA, URINE AUTO NEGATIVE (NEGATIVE); BILIRUBIN, URINE AUTO NEGATIVE (NEGATIVE); BLOOD, URINE BLOOD 1+ (NEGATIVE); COLOR, URINE YELLOW (YELLOW); GLUCOSE, URINE (UA) AUTO NEGATIVE (NEGATIVE); KETONE, URINE AUTO NEGATIVE (NEGATIVE); LEUKOCYTE ESTERASE, URINE AUTO 1+ (NEGATIVE); MUCUS, URINE LARGE (NEGATIVE); NITRITE, URINE AUTO POSITIVE (NEGATIVE); PROTEIN, URINE AUTO 2+ mg/dL (NEGATIVE); RBC, URINE AUTO 6 /HPF (0-3); SPECIFIC GRAVITY URINE AUTO 1.025 (1.002-1.035); SQUAMOUS EPITHELIAL CELL UR AU 0 /HPF (0-6); UROBILINOGEN, URINE AUTO 0.2 mg/dL (0.0-2.0); WBC, URINE AUTO 63 /HPF (0-3)
== END ==
LOC: M SMT 17:03
PROVIDERS: ATTEND Nurse Practitioner Family
DX: N39.0 Urinary tract infection, site not specified (principal)